=== PATIENT | female | born 1960 | race Caucasian/White ===

== ENCOUNTER 2018-05-11 02:46 | Observation (INO) ==
[2018-05-11] MEDS ORDERED: Sod Chloride 0.9% Inj 1,000 ML IV.SIG ONE (03:03)
[2018-05-11] MEDS ORDERED: Lidocaine 2%/Epinephrine 1:100,000 30 ML MDV INFILTRATN ONE (03:18)
[2018-05-11] MEDS ORDERED: Lidocaine 2%/Epinephrine 1;100,000 Inj 50 ML Vial ONE (03:25)
--- NOTE | 2018-05-11 03:29 | CT ---
EXAM DATE: 05/11/2018 3:24 AM EST AGE/SEX: 57 years / Female INDICATIONS: Trauma; head injury. Positive loss of consciousness. Laceration to left side of head. CLINICAL DATA: This is the patient's initial encounter. Patient reports that signs and symptoms have been present for 1 day and indicates a pain score of 6/10. MEDICAL/SURGICAL HISTORY: Hypertension. None. RADIATION DOSE: 56.35 CTDI (mGy) COMPARISON: No prior exams available for comparison. TECHNIQUE: CT of the head without contrast. Using automated exposure control and adjustment of the mA and/or kV according to patient size, radiation dose was kept as low as reasonably achievable to ob tain optimal diagnostic quality images. DICOM format image data is available electronically for revi ew and comparison. FINDINGS: Cerebrum: The ventricles are normal for age. No evidence of midline shift, mass lesion, hemorrhage or acute infarction. No extraaxial fluid collections are seen. Posterior Fossa: The cerebellum and brainstem are intact. The 4th ventricle is midline. The cerebe llopontine angle is unremarkable. Extracranial: The visualized portion of the orbits is intact. Skull: The calvaria is intact. No evidence of skull fracture. CONCLUSION: 1. Negative CT Head non contrast. . Electronically signed by: Yogesh Molina MD Board Certified Radiologist 05/11/2018 3:27 AM EST
[2018-05-11 03:35] LABS: Baso # (Auto) 0.1 th/mm3 (0.0-0.2); Baso % (Auto) 1.1 % (0.0-2.0); Eos # (Auto) 0.2 th/mm3 (0.0-0.4); Eos % (Auto) 2.2 % (0.0-4.0); Hematocrit 45.5 % (35.0-46.0); Hemoglobin 16.3 gm/dL (11.6-15.3); Lymph # (Auto) 3.6 th/mm3 (1.0-4.8); Lymph % (Auto) 39.1 % (9.0-44.0); Mean Corpuscular HGB Conc 35.8 % (32.0-36.0); Mean Corpuscular Hemoglobin 38.1 pg (27.0-34.0); Mean Corpuscular Volume 106.4 fL (80.0-100.0); Mean Platelet Volume 8.2 fL (7.0-11.0); Mono # (Auto) 0.9 th/mm3 (0.0-0.9); Mono % (Auto) 9.4 % (0.0-8.0); Neut # (Auto) 4.4 th/mm3 (1.8-7.7); Neut % (Auto) 48.2 % (16.0-70.0); Platelet Count 202 th/mm3 (150-450); Red Blood Count 4.27 mil/mm3 (4.00-5.30); Red Cell Distribution Width 13.3 % (11.6-17.2); White Blood Count 9.2 th/mm3 (4.0-11.0)
[2018-05-11 03:54] LABS: Anion Gap 12 meq/L (5-15); Blood Urea Nitrogen 1 mg/dL (7-18); Calcium 8.9 mg/dL (8.5-10.1); Carbon Dioxide 30.5 meq/L (21.0-32.0); Chloride 92 meq/L (98-107); Glomerular Filtration Rate Greater Than 89 mL/min (>89); Glucose,Random 137 mg/dL (74-106); Potassium 3.1 meq/L (3.5-5.1); Sodium 134 meq/L (136-145)
[2018-05-11 04:12] LABS: Bilirubin,Urine Negative (Negative); Clarity,Urine Clear (Clear); Color,Urine Straw (Yellw/Straw); Glucose,Urine (UA) Negative (Negative); Leukocyte Esterase,Urine Moderate (Negative); Nitrite,Urine Negative (Negative); Specific Gravity,Urine 1.001 (1.002-1.035)
--- NOTE | 2018-05-11 04:12 | ED ---
HPI General Chief Complaint: Fall Stated Complaint: Fall Time Seen by Provider: 05/11/18 02:53 Source: patient Mode of arrival: ambulatory Limitations: no limitations History of Present Illness HPI Narrative: 57 yo female arrives s/p fall at home with unresponsive state on the floor for approx 5 minutes. Pt was seen by family ambulatory and then found on the floor. + L head laceration with brisk bleed seen. Bleeding stopped with pressure dressing. + EtOH tonight, approx 2 cups liquor. In ED patient has no complaint, specifically no CP/SOB. No n/v. Onset sudden. Timing constant. No modifying factor. Related Data Home Medications Medication Instructions Recorded Confirmed atenolol 25 mg PO DAILY 05/11/18 05/11/18 gabapentin 300 mg PO BID 05/11/18 05/11/18 Allergies Allergy/AdvReac Type Severity Reaction Status Date / Time Penicillins Allergy HIVES Unverified 05/11/18 03:03 Review of Systems ROS Unobtainable ROS Unobtainable: unobtainable due to mental condition and unobtainable due to mental status PMFSH Medical History Medical History Hypertension (Acute) Neuropathy (Acute) PVC (premature ventricular contraction) (Acute) Social History Social History Substance History: No History of Abuse Second Hand Smoke Exposure: No Smoking Status: Current every day smoker Tobacco Type: Cigarettes How Often Do You Have a Drink Containing Alcohol: 4 or more times a week Recent Travel in [facility] within the Last 8 Weeks: No Recent Out of Country Travel within the Last 8 Weeks: No Immunization History Tetanus Immunization: >5 Years Exam Narrative Exam Narrative: GENERAL: 57 yo F, WNWD, mild distress SKIN: Focused skin assessment warm/dry. HEAD: Normocephalic. Approx 2cm laceration along left parietal scalp. No mastoid ecchymosis. EYES: Pupils equal and round. No scleral icterus. No injection or drainage. ENT: No nasal bleeding or discharge. Mucous membranes pink and moist. NECK: Trachea midline. No JVD. CARDIOVASCULAR: Regular rate and rhythm. No murmur appreciated. RESPIRATORY: No accessory muscle use. Clear to auscultation. Breath sounds equal bilaterally. GASTROINTESTINAL: Abdomen soft, non-tender, nondistended. Hepatic and splenic margins not palpable. MUSCULOSKELETAL: No obvious deformities. No clubbing. No cyanosis. No edema. NEUROLOGICAL: Awake and alert. No obvious cranial nerve deficits. Motor grossly within normal limits. Normal speech. PSYCHIATRIC: Appropriate mood and affect; insight and judgment normal. Course Initial Documented Vital Signs Temperature 98 F 05/11/18 02:53 Pulse Rate 66 05/11/18 02:53 Respiratory Rate 18 05/11/18 02:53 Blood Pressure 152/87 H 05/11/18 02:53 Pulse Oximetry 96 05/11/18 02:53 Last Documented Vital Signs Temperature 98 F 05/11/18 02:53 Pulse Rate 61 05/11/18 05:24 Respiratory Rate 18 05/11/18 05:24 Blood Pressure 126/71 05/11/18 02:57 Pulse Oximetry 99 05/11/18 05:24 Medical Decision Making MDM Narrative Medical decision making narrative: EKG shows ST depression in precordial leads, incomplete RBBB norted, sinus CBC essentially normal although MCV is 106 c/w alcoholism K 3.1 BUN 1 Random glucose 137 Tn < 0.[address] no acute pathology UA: No UTI EtOH 279 Pt reports L lower chest pain at time of reassessment. Pt also reports minimal PO intake for past several days with constipation and occasional soft stool. + Flatus. Likely LOC event 2/2 etoh intox. CP with abnormal ekg noted. d/w Dr Bocanegra for [facility] Medical Screen Exam Complete: Yes Emergency Medical Condition: Yes Lab Data Result diagrams: 05/11/18 03:17 05/11/18 03:17 Lab Results 05/11/18 05/11/18 05/11/18 Range/Units 03:17 03:17 03:17 WBC 9.2 (4.0-11.0) th/mm3 RBC 4.27 (4.00-5.30) mil/mm3 Hgb 16.3 H (11.6-15.3) gm/dL Hct 45.5 (35.0-46.0) % MCV 106.4 H (80.0-100.0) fL MCH 38.1 H (27.0-34.0) pg MCHC 35.8 (32.0-36.0) % RDW 13.3 (11.6-17.2) % Plt Count 202 (150-450) th/mm3 MPV 8.2 (7.0-11.0) fL Neut % (Auto) 48.2 (16.0-70.0) % Lymph % (Auto) 39.1 (9.0-44.0) % [place] % (Auto) 9.4 H (0.0-8.0) % Eos % (Auto) 2.2 (0.0-4.0) % Baso % (Auto) 1.1 (0.0-2.0) % Neut # (Auto) 4.4 (1.8-7.7) th/mm3 Lymph # (Auto) 3.6 (1.0-4.8) th/mm3 [place] # (Auto) 0.9 (0.0-0.9) th/mm3 Eos # (Auto) 0.2 (0.0-0.4) th/mm3 Baso # (Auto) 0.1 (0.0-0.2) th/mm3 WBC Differential . Differential Comment Auto diff final Sodium 134 L (136-145) meq/L Potassium 3.1 L (3.5-5.1) meq/L Chloride 92 L (98-107) meq/L Carbon Dioxide 30.5 (21.0-32.0) meq/L Anion Gap 12 (5-15) meq/L BUN 1 L (7-18) mg/dL Creatinine 0.50 (0.50-1.00) mg/dL Estimated GFR Greater than 89 (>89) mL/min Random Glucose 137 H (74-106) mg/dL Calcium 8.9 (8.5-10.1) mg/dL Troponin I Less than 0.02 L (0.02-0.05) ng/mL Urine Color (Yellw/Straw) Urine Clarity (Clear) Urine pH (5.0-8.5) Ur Specific [place] (1.002-1.035) Urine Protein (Neg-Trace) mg/dL Urine Glucose (UA) (Negative) mg/dL Urine Ketones (Negative) mg/dL Urine Occult Blood (Negative) Urine Nitrate (Negative) Urine Bilirubin (Negative) Urine Urobilinogen (Less than 2) mg/dL Ur Leukocyte Esterase (Negative) Urine RBC (0-3) /hpf Urine WBC (0-5) /hpf Ur Microscopic Review Serum Alcohol 279 H (0-5) mg/dL 05/11/18 Range/Units 03:25 WBC (4.0-11.0) th/mm3 RBC (4.00-5.30) mil/mm3 Hgb (11.6-15.3) gm/dL Hct (35.0-46.0) % MCV (80.0-100.0) fL MCH (27.0-34.0) pg MCHC (32.0-36.0) % RDW (11.6-17.2) % Plt Count (150-450) th/mm3 MPV (7.0-11.0) fL Neut % (Auto) (16.0-70.0) % Lymph % (Auto) (9.0-44.0) % [place] % (Auto) (0.0-8.0) % Eos % (Auto) (0.0-4.0) % Baso % (Auto) (0.0-2.0) % Neut # (Auto) (1.8-7.7) th/mm3 Lymph # (Auto) (1.0-4.8) th/mm3 [place] # (Auto) (0.0-0.9) th/mm3 Eos # (Auto) (0.0-0.4) th/mm3 Baso # (Auto) (0.0-0.2) th/mm3 WBC Differential Differential Comment Sodium (136-145) meq/L Potassium (3.5-5.1) meq/L Chloride (98-107) meq/L Carbon Dioxide (21.0-32.0) meq/L Anion Gap (5-15) meq/L BUN (7-18) mg/dL Creatinine (0.50-1.00) mg/dL Estimated GFR (>89) mL/min Random Glucose (74-106) mg/dL Calcium (8.5-10.1) mg/dL Troponin I (0.02-0.05) ng/mL Urine Color Straw (Yellw/Straw) Urine Clarity Clear (Clear) Urine pH 7.0 (5.0-8.5) Ur Specific [place] 1.001 L (1.002-1.035) Urine Protein Negative (Neg-Trace) mg/dL Urine Glucose (UA) Negative (Negative) mg/dL Urine Ketones Negative (Negative) mg/dL Urine Occult Blood Negative (Negative) Urine Nitrate Negative (Negative) Urine Bilirubin Negative (Negative) Urine Urobilinogen Less than 2 (Less than 2) mg/dL Ur Leukocyte Esterase Moderate H (Negative) Urine RBC Less than 1 (0-3) /hpf Urine WBC 2 (0-5) /hpf Ur Microscopic Review Not Reportable Serum Alcohol (0-5) mg/dL Imaging Data Radiologist's impression: Head CT 05/11/18 03:03 CONCLUSION: 1. Negative CT Head non contrast. . Chest X-Ray 05/11/18 04:45 CONCLUSION: The lungs are clear. Discharge Plan Discharge Disposition Patient Disposition: ED Admit(ED Internal Use Only) Discharge Order Discharge Orders: ED Use Only Admit Order (Routine); Ordered 05/11/18 Ordered By: Evaristo Velarde Physicians Team ED Provider: Evaristo Velarde Primary Care Provider: Primary Care Amanda Davidson Attending Provider: Susie Bocanegra Other Providers: [facility],Insurance Discharge Interventions Interventions: Vital Signs Last Done: 05/11/18 02:57 ED Discharge Assessment Last Done: 05/11/18 06:10 Status ED Status: Left Department Discharge Information Discharge Date/Time: 05/11/18 06:13
[2018-05-11] MEDS ORDERED: LORazepam 1 MG Tablet PO PRN (05:10)
[2018-05-11] MEDS ORDERED: Haloperidol Inj 5 MG/ML Ampul IV.PUSH PRN (05:10)
[2018-05-11] MEDS ORDERED: Bisacodyl 10 MG Supp RECTAL PRN (05:11)
[2018-05-11] MEDS ORDERED: Morphine Sulfate Inj 2 MG/ML Vial IV.PUSH PRN (05:13)
--- NOTE | 2018-05-11 06:10 | XR ---
EXAM DATE: 05/11/2018 5:07 AM EST AGE/SEX: 57 years / Female INDICATIONS: Chest pain. CLINICAL DATA: This is the patient's initial encounter. Patient reports that signs and symptoms have been present for 1 day and indicates a pain score of 5/10. MEDICAL/SURGICAL HISTORY: Hypertension. None. COMPARISON: No prior exams available for comparison. FINDINGS: A single AP view of the chest demonstrates the lungs to be symmetrically aerated without evidence of mass, infiltrate or effusion. The cardiomediastinal contours are unremarkable. Osseous structures a re intact. CONCLUSION: The lungs are clear. Electronically signed by: Yogesh Molina MD Board Certified Radiologist 05/11/2018 6:09 AM EST
[2018-05-11] MEDS: Sod Chloride 0.9% Inj 1,000 ML IV.CONT SCH ×2 (06:21→19:21)
[2018-05-11] MEDS: Pantoprazole Inj 40 MG Vial IV.PUSH SCH ×2 (06:22→18:04)
--- NOTE | 2018-05-11 07:50 | P.HP ---
History of Present Illness Primary Care Physician: No Primary Care Physician Chief Complaint: syncope History of Present Illness: 57-year-old female with history of hypertension, PVCs, neuropathy, alcohol use, tobacco use, presents after syncopal episode. Patient reports she has been in her normal state of health, drink her usual amount of alcohol around 2 cups of vodka, went to the bathroom, then while ambulating to the kitchen, suddenly lost consciousness and fell to the floor. Family heard a loud thud and found the patient unconscious with scalp laceration. There is reported that she was out for maybe 5 minutes. The patient recalls being transported via ambulance. She denies ever experiencing any lightheadedness, dizziness, chest pain, palpitations, shortness of breath prior to the episode. She denies any nausea or vomiting. She states over the past 10 days she has been battling constipation, therefore over the past 3 days she has been drinking only liquids. She has also been taking stool softeners and laxatives to have a bowel movement. She reports some pain under her left rib cage which has been present for a few days now. She also reports some tenderness to her sternum, reproducible with palpation. She denies any specific chest pains. She denies any history of she does report history of frequent PVCs for which she takes flecainide and atenolol, and sees mid level clinician Dr. Navarro. She believes she had a nuclear stress test and echocardiogram within the past 1 year that was unremarkable. She is declining any stress testing or echo at this time and wishes to follow-up with her mid level clinician after discharge. Review of Systems All other systems reviewed negative except as stated in [facility] - History History Provided By: Patient - Medical History Medical History: Medical History (Last Updated 05/11/18 @ 02:56 by Shasha Nur) Hypertension Neuropathy PVC (premature ventricular contraction) - Surgical History Surgical History: Surgical History (Last Updated 05/11/18 @ 10:12 by Kelly Benito) History of section - Family History Family History: Family History (Last Updated 05/11/18 @ 10:12 by Kelly Benito) Father Family history of blood clots Mother Lung cancer - Social History I have reviewed the patient's Social History: Yes - Tobacco History Second Hand Smoke Exposure: Yes Tobacco Use In Past 30 Days: Yes Smoking Status: Heavy tobacco smoker Tobacco Type: Cigarettes Packs Per Day: 1 - Alcohol History How Often Do You Have a Drink Containing Alcohol: 4 or more times a week - Substance Use History Substance History: No History of Abuse - Travel History Recent Travel in the [place] Within the Last 8 Weeks: No Recent Travel Out of the Country Within the Last 8 Weeks: No - Immunization History Tetanus Immunization: >5 Years Medications and Allergies Active Medications: Active Medications Acetaminophen (Tylenol) 650 mg PO Q4H PRN PRN Reason: Temp > 100.4 Al Hydroxide/Mg Hydroxide (Milk Of Magnesia Liq) 30 ml PO Q12H PRN PRN Reason: Mild Constipation Bisacodyl (Dulcolax Supp) 10 mg RECTAL DAILY PRN PRN Reason: SEVERE CONSITIPATION Flumazenil (Romazecon Inj) 0.2 mg IV.PUSH Q1M PRN PRN Reason: OVERSEDATION Folic Acid (Folic Acid) 1 mg PO DAILY [facility] Stop: 05/16/18 08:59 Haloperidol Lactate (Haldol Inj) 1 mg IV.PUSH Q15M PRN PRN Reason: for severe agitation Sodium Chloride (Ns Inj) 1,000 mls @ 100 mls/hr IV.CONT .Q10H [facility] Last Admin: 05/11/18 06:21 Dose: 100 mls/hr Lactulose (Lactulose Liq) 30 ml PO DAILY PRN PRN Reason: SEVERE CONSITIPATION Lorazepam (Ativan) 1 mg PO Q4H PRN PRN Reason: for CIWA 8-10 Lorazepam (Ativan) 2 mg PO Q2H PRN PRN Reason: for CIWA 11-14 Lorazepam (Ativan Inj) 2 mg IV.PUSH Q2H PRN PRN Reason: for CIWA 11-14 Lorazepam (Ativan Inj) 2 mg IV.PUSH Q1H PRN PRN Reason: for CIWA 15-20 Lorazepam (Ativan Inj) 1 mg IV.PUSH Q4H PRN PRN Reason: for CIWA 8-10 Lorazepam (Ativan Inj) 2 mg IV.PUSH Q15M PRN PRN Reason: for CIWA > 20 Morphine Sulfate (Morphine Inj) 2 mg IV.PUSH Q4H PRN PRN Reason: PAIN SCALE 6 TO 10 Multivitamins/Minerals (Theragran-M) 1 tab PO DAILY CYNTHIA Stop: 05/16/18 08:59 Ondansetron HCl (Zofran Inj) 4 mg IV.PUSH Q6H PRN PRN Reason: NAUSEA OR VOMITING Pantoprazole Sodium (Protonix Inj) 40 mg IV.PUSH Q12H [facility] Last Admin: 05/11/18 06:22 Dose: 40 mg Potassium Chloride (K-Dur) 40 meq PO ONCE ONE Stop: 05/11/18 07:50 Senna/Docusate Sodium ([place]-Colace) 1 tab PO BID [facility] Sennosides (Senokot) 17.2 mg PO Q12H PRN PRN Reason: Moderate Constipation Sodium Chloride (Ns Flush) 2 ml IV.FLUSH PRN PRN PRN Reason: FLUSH AFTER USING IV ACCESS Sodium Chloride (Ns Flush) 2 ml IV.FLUSH BID CYNTHIA Sodium Chloride (Ns Flush) 2 ml IV.FLUSH PRN PRN PRN Reason: FLUSH AFTER USING IV ACCESS Thiamine HCl (Vitamin B1) 100 mg PO DAILY [facility] Allergies Allergy/AdvReac Type Severity Reaction Status Date / Time Penicillins Allergy HIVES Verified 05/11/18 08:28 Home Medications Medication Instructions Recorded Confirmed Type atenolol 25 mg PO DAILY 05/11/18 05/11/18 History flecainide 50 mg PO Q12H 05/11/18 05/11/18 History gabapentin 300 mg PO BID 05/11/18 05/11/18 History Exam Vital signs: Vital Signs 05/11/18 02:53 05/11/18 02:57 05/11/18 03:51 Temperature 98 F Pulse Rate 66 68 Respiratory Rate 18 18 Blood Pressure 152/87 H 126/71 Pulse Oximetry 96 95 05/11/18 05:11 05/11/18 05:24 Temperature Pulse Rate 64 61 Respiratory Rate 18 Blood Pressure Pulse Oximetry 99 Intake & Output 05/10/18 05/11/18 05/11/18 18:59 06:59 18:59 Intake Total 1240 / 1240 Balance 1240 / 1240 Weight 81.647 kg Intake: IV 1000 / 1000 NS Inj 1,000 ML @ Wide Open IV. 1000 / 1000 SIG BOLUS ONE Rx#:[id number] Oral 240 / 240 Other: # Voids 1 Weight On Admission 81.647 kg Narrative: GENERAL: Well-nourished, well-developed pleasant middle-age female patient in NAD. SKIN: Warm and dry. No rash. HEENT: Normocephalic. Left parietal scalp with 2 cm laceration. Pupils equal and round. Mucous membranes pink and moist. NECK: Supple. Trachea midline. Nontender. CARDIOVASCULAR: Regular rate and rhythm. No murmur appreciated. RESPIRATORY: No accessory muscle use. Clear to auscultation. Breath sounds equal bilaterally. GASTROINTESTINAL: Abdomen soft, nondistended, mild epigastric and left upper quadrant tenderness to deep palpation. Normoactive bowel sounds x4. MUSCULOSKELETAL: No obvious deformities. Extremities without clubbing, cyanosis , or edema. NEUROLOGICAL: Awake and alert. No obvious cranial nerve deficits. Motor grossly within normal limits. Moving all extremities spontaneously. Normal speech. PSYCHIATRIC: Appropriate mood and affect; insight and judgment normal. Results - Labs CBC & Chem 7: 05/11/18 03:17 05/11/18 03:17 Labs: Laboratory Results - last 24 hr 05/11/18 05/11/18 05/11/18 03:17 03:17 03:17 WBC 9.2 RBC 4.27 Hgb 16.3 H Hct 45.5 MCV 106.4 H MCH 38.1 H MCHC 35.8 RDW 13.3 Plt Count 202 MPV 8.2 Neut % (Auto) 48.2 Lymph % (Auto) 39.1 [place] % (Auto) 9.4 H Eos % (Auto) 2.2 Baso % (Auto) 1.1 Neut # (Auto) 4.4 Lymph # (Auto) 3.6 [place] # (Auto) 0.9 Eos # (Auto) 0.2 Baso # (Auto) 0.1 WBC Differential . Differential Comment Auto diff final Sodium 134 L Potassium 3.1 L Chloride 92 L Carbon Dioxide 30.5 Anion Gap 12 BUN 1 L Creatinine 0.50 Estimated GFR Greater than 89 Random Glucose 137 H Calcium 8.9 Troponin I Less than 0.02 L Urine Color Urine Clarity Urine pH Ur Specific [place] Urine Protein Urine Glucose (UA) Urine Ketones Urine Occult Blood Urine Nitrate Urine Bilirubin Urine Urobilinogen Ur Leukocyte Esterase Urine RBC Urine WBC Ur Microscopic Review Serum Alcohol 279 H 05/11/18 03:25 WBC RBC Hgb Hct MCV MCH MCHC RDW Plt Count MPV Neut % (Auto) Lymph % (Auto) [place] % (Auto) Eos % (Auto) Baso % (Auto) Neut # (Auto) Lymph # (Auto) [place] # (Auto) Eos # (Auto) Baso # (Auto) WBC Differential Differential Comment Sodium Potassium Chloride Carbon Dioxide Anion Gap BUN Creatinine Estimated GFR Random Glucose Calcium Troponin I Urine Color Straw Urine Clarity Clear Urine pH 7.0 Ur Specific [place] 1.001 L Urine Protein Negative Urine Glucose (UA) Negative Urine Ketones Negative Urine Occult Blood Negative Urine Nitrate Negative Urine Bilirubin Negative Urine Urobilinogen Less than 2 Ur Leukocyte Esterase Moderate H Urine RBC Less than 1 Urine WBC 2 Ur Microscopic Review Not Reportable Serum Alcohol - Imaging Impressions Head CT 05/11/18 03:03 CONCLUSION: 1. Negative CT Head non contrast. . Chest X-Ray 05/11/18 04:45 CONCLUSION: The lungs are clear. Caprini VTE Risk Assessment Caprini VTE Risk Assessment: No/Low Risk (score <= 1) Caprini Risk Assessment Model: Point Value = 1 Point Value = 2 Point Value = 3 Point Value = 5 Age 41-60 Minor surgery BMI > 25 kg/m2 Swollen legs Varicose veins or History of unexplained or recurrent spontaneous Oral contraceptives or hormone replacement Sepsis (< 1 month) Serious lung disease, including pneumonia (< 1 month) Abnormal pulmonary function Acute myocardial infarction Congestive heart failure (< 1 month) History of inflammatory bowel disease Medical patient at bed rest Age 61-74 Arthroscopic surgery Major open surgery (> 45 min) Laparoscopic surgery (> 45 min) Malignancy Confined to bed (> 72 hours) Immobilizing plaster cast Central venous access Age >= 75 History of VTE Family history of VTE Factor V Leiden Prothrombin [id number] Lupus anticoagulant Anticardiolipin antibodies Elevated serum homocysteine Heparin-induced thrombocytopenia Other congenital or acquired thrombophilia Stroke (< 1 month) Elective arthroplasty Hip, pelvis, or leg fracture Acute spinal cord injury (< 1 month) Prophylaxis Regimen: Total Risk Factor Score Risk Level Prophylaxis Regimen 0-1 Low Early ambulation 2 Moderate Order ONE of the following: *Sequential Compression Device (SCD) *Heparin 5000 units SQ BID 3-4 Higher Order ONE of the following medications: *Heparin 5000 units SQ TID *Enoxaparin/Lovenox 40 mg SQ daily (WT < 150 kg, CrCl > 30 mL/min) *Enoxaparin/Lovenox 30 mg SQ daily (WT < 150 kg, CrCl > 10-29 mL/min) *Enoxaparin/Lovenox 30 mg SQ BID (WT < 150 kg, CrCl > 30 mL/min) AND/OR *Sequential Compression Device (SCD) 5 or more Highest Order ONE of the following medications: *Heparin 5000 units SQ TID (Preferred with Epidurals) *Enoxaparin/Lovenox 40 mg SQ daily (WT < 150 kg, CrCl > 30 mL/min) *Enoxaparin/Lovenox 30 mg SQ daily (WT < 150 kg, CrCl > 10-29 mL/min) *Enoxaparin/Lovenox 30 mg SQ BID (WT < 150 kg, CrCl > 30 mL/min) AND *Sequential Compression Device (SCD) Assessment and Plan - Plan 57-year-old female with history of hypertension, PVCs, neuropathy, alcohol use, tobacco use, presents after syncopal episode. Syncope: Strongly suspect secondary to alcohol intoxication and dehydration. However hx of arrhythmias with frequent PVCs. -EtOH level 279 -Head CT reviewed and unremarkable -Check orthostatics, mildly positive -Rule out ACS with serial cardiac enzymes, first set negative -EKG reviewed, shows sinus rhythm with 1st degree AV block, incomplete RBBB, with some slight ST changes -Give IV fluid hydration -Monitor on telemetry -Neurochecks -Patient is back to baseline, asymptomatic -will consult patient's mid level clinician Dr. Navarro if available, and strongly encouraged follow-up for outpatient echo and event monitor History of frequent PVCs: Chronic, possibly contributing to above -Monitor on telemetry, no significant findings -continue patient's atenolol, awaiting verification of flecainide dosing -consulted cardiology as above Abdominal Pain/Constipation: acute -check abdominal CT -give stool softeners/laxatives prn -monitor for BM Dehydration/Hypokalemia: suspect secondary to decreased oral intake and alcohol abuse -give IVF hydration -replaced potassium -monitor BMP/electrolytes and replace as needed Alcohol Abuse: chronic -counselled on cessation -thiamine/folate/MV -monitor for withdrawal DVT Prophylaxis: teds/SCDs
[2018-05-11] MEDS: Folic Acid 1 MG Tablet PO SCH (08:28)
[2018-05-11] MEDS: Multivitamin/Minerals Therapeutic Tablet PO SCH (08:28)
[2018-05-11] MEDS: Senna/Docusate Sodium 8.6/50 MG Tablet PO SCH ×2 (08:28→20:01)
[2018-05-11] MEDS ORDERED: Diatrizoate Meglum/Diatrizoate Sod Liq 9 ML UDC PO ONE (08:34)
[2018-05-11] MEDS ORDERED: Atenolol 50 MG Tablet PO SCH (09:00)
[2018-05-11] MEDS: Gabapentin 300 MG Capsule PO SCH ×2 (09:26→20:27)
[2018-05-11] MEDS: Atenolol 25 MG Tablet PO SCH (09:26)
[2018-05-11 12:44] LABS: Alanine Aminotransferase 55 U/L (10-53); Alkaline Phosphatase 130 U/L (45-117); Anion Gap 14 meq/L (5-15); Aspartate Aminotransferase 152 U/L (15-37); Calcium 8.8 mg/dL (8.5-10.1); Chloride 100 meq/L (98-107); Glomerular Filtration Rate Greater Than 89 mL/min (>89); Glucose,Random 120 mg/dL (74-106); Lipase 119 U/L (73-393); Magnesium 1.2 mg/dL (1.5-2.5); Potassium 4.1 meq/L (3.5-5.1); Sodium 140 meq/L (136-145); Total Protein 6.7 g/dL (6.4-8.2)
--- NOTE | 2018-05-11 13:22 | CT ---
EXAM DATE: 05/11/2018 1:16 PM EST AGE/SEX: 57 years / Female INDICATIONS: Left side abdominal pain. CLINICAL DATA: This is the patient's initial encounter. Patient reports that signs and symptoms have been present for 1 day and indicates a pain score of 4/10. MEDICAL/SURGICAL HISTORY: Hypertension. None. ORAL CONTRAST: No oral contrast ingested. RADIATION DOSE: 13.21 CTDI (mGy) COMPARISON: [facility], CT ABDOMEN AND PELVIS W AND W/O CONTRAST, 12/22/2014. . TECHNIQUE: Multiple contiguous axial images were obtained through the abdomen and pelvis following b olus infusion of 94 ml Omnipaque 350 (iohexol) nonionic water-soluble contrast as a single exam dos e. No oral contrast ingested. Using automated exposure control and adjustment of the mA and/or kV ac cording to patient size, radiation dose was kept as low as reasonably achievable to obtain optimal di agnostic quality images. DICOM format image data is available electronically for review and comparis on. FINDINGS: Lower Lungs: The visualized lower lungs are clear. Liver: There is diffuse decreased attenuation to the liver. No focal hepatic lesions are seen. Spleen: Homogeneous density without enlargement. Pancreas: Unremarkable without mass or calcification. Kidneys: Normal in size and shape. No evidence of mass or hydronephrosis. Adrenal Glands: Unremarkable. Aorta: The aorta and proximal iliac vessels are grossly unremarkable without aneurysmal dilation. T here are scattered atherosclerotic calcifications present. Bowel/Mesentery: There is thickening of the sigmoid colon. Scattered colonic diverticula are present . There are some induration seen around the sigmoid colon. There is a small focus of extraluminal air seen in the mesentery adjacent to the sigmoid colon. Free air is not seen. The ascending, transverse and descending portions of the colon are unremarkable. The small bowel is unremarkable. Abdominal Wall: Intact. Retroperitoneum: No evidence of adenopathy in the retrocrural, para-aortic, or deep pelvic regions. Bladder: Contours are smooth. Reproductive Organs: No abnormal masses or calcifications seen. Inguinal: The inguinal region is unremarkable without evidence of adenopathy. Bony Structures: There is degenerative change seen in the lumbar spine. CONCLUSION: 1. Thickening of the sigmoid colon with adjacent inflammatory change and a small focus of air likely related to colitis. This may start is diverticulitis. 2. Hepatic steatosis. Electronically signed by: Cornelius Myles MD Board Certified Radiologist 05/11/2018 1:21 PM EST
[2018-05-11] MEDS: Acetaminophen 325 MG Tablet PO PRN ×2 (13:29→18:04)
[2018-05-11] MEDS: Ciprofloxacin 400 MG/200 ML 400 MG/200 ML PIGGYBACK IV.SIG SCH (16:27)
--- NOTE | 2018-05-11 16:52 | P.CONGI ---
History of Present Illness Chief complaint: syncope, head laceraction, alcohol intox, chest History of Present Illness: This is 57-year-old female with history of hypertension, PVCs, neuropathy, alcohol abuse, tobacco use who presented with syncopal episode. Patient endorses sudden lost of consciousness and fall after consuming vodka. She denies ever experiencing any lightheadedness, dizziness, chest pain, palpitations, shortness of breath prior to the episode. She denies any nausea or vomiting. She states over the past week, she has been dealing with constipation. She has also been taking stool softeners and laxatives to have a bowel movement. Describes stools as sludge and loose stools mixed in with some solids. Denies nausea, vomiting, melena or hematochezia. She reports some pain under her left rib cage and lower abd pain started same time as constipation. Abdomen/Pelvis CT 05/11/18 Thickening of the sigmoid colon with adjacent inflammatory change and a small focus of air likely related to colitis. This may start is diverticulitis.Hepatic steatosis. Endorses previous hx of diverticulitis, but no recent flare. She never had EGD/colonoscopy before. She denies previous hx of liver dz. Drinks about 2 cups of vodka daily. <Kojo Lopez - Last Filed: 05/11/18 17:47> Review of Systems All other systems reviewed negative except as stated in HPI <Kojo Lopez - Last Filed: 05/11/18 17:47> PMFSH - History History Provided By: Patient - Medical History Medical History: Medical History (Last Updated 05/11/18 @ 02:56 by Shasha Nur) Hypertension Neuropathy PVC (premature ventricular contraction) - Surgical History Surgical History: Surgical History (Last Updated 05/11/18 @ 10:12 by Kelly Benito) History of section - Family History Family History: Family History (Last Updated 05/11/18 @ 10:12 by Kelly Benito) Father Family history of blood clots Mother Lung cancer - Tobacco History Second Hand Smoke Exposure: Yes Tobacco Use In Past 30 Days: Yes Smoking Status: Heavy tobacco smoker Tobacco Type: Cigarettes Packs Per Day: 1 - Alcohol History How Often Do You Have a Drink Containing Alcohol: 4 or more times a week - Substance Use History Substance History: No History of Abuse - Travel History Recent Travel in the [facility] Within the Last 8 Weeks: No Recent Travel Out of the Country Within the Last 8 Weeks: No - Immunization History Tetanus Immunization: >5 Years <Kojo Lopez - Last Filed: 05/11/18 17:47> - Medical History Medical History: Medical History (Last Updated 05/11/18 @ 02:56 by Shasha Nur) Hypertension Neuropathy PVC (premature ventricular contraction) - Surgical History Surgical History: Surgical History (Last Updated 05/11/18 @ 10:12 by Kelly Benito) History of section - Family History Family History: Family History (Last Updated 05/11/18 @ 10:12 by Kelly Benito) Father Family history of blood clots Mother Lung cancer <Malik Beck - Last Filed: 05/11/18 18:47> Medications and Allergies Active Medications: Active Medications Acetaminophen (Tylenol) 650 mg PO Q4H PRN PRN Reason: Temp > 100.4 Last Admin: 05/11/18 13:29 Dose: 650 mg Al Hydroxide/Mg Hydroxide (Milk Of Clau Gant) 30 ml PO Q12H PRN PRN Reason: Mild Constipation Atenolol (Tenormin) 25 mg PO DAILY [facility] Last Admin: 05/11/18 09:26 Dose: 25 mg Bisacodyl (Dulcolax Supp) 10 mg RECTAL DAILY PRN PRN Reason: SEVERE CONSITIPATION Flumazenil (Romazecon Inj) 0.2 mg IV.PUSH Q1M PRN PRN Reason: OVERSEDATION Folic Acid (Folic Acid) 1 mg PO DAILY [facility] Stop: 05/16/18 08:59 Last Admin: 05/11/18 08:28 Dose: 1 mg Gabapentin (Neurontin) 300 mg PO BID [facility] Last Admin: 05/11/18 09:26 Dose: 300 mg Haloperidol Lactate (Haldol Inj) 1 mg IV.PUSH Q15M PRN PRN Reason: for severe agitation Sodium Chloride (Ns Inj) 1,000 mls @ 100 mls/hr IV.CONT .Q10H [facility] Last Infusion: 05/11/18 16:36 Dose: 100 mls/hr Metronidazole/Sodium Chloride (Flagyl 500 Mg Inj) 100 mls @ 100 mls/hr IV.SIG Q8H [facility] Ciprofloxacin/Dextrose (Cipro 400 Mg/200 Ml Inj) 400 mg in 200 mls @ 200 mls/ hr IV.SIG Q12H [facility] Last Admin: 05/11/18 16:27 Dose: 200 mls/hr Lactulose (Lactulose Liq) 30 ml PO DAILY PRN PRN Reason: SEVERE CONSITIPATION Lorazepam (Ativan) 1 mg PO Q4H PRN PRN Reason: for CIWA 8-10 Lorazepam (Ativan) 2 mg PO Q2H PRN PRN Reason: for CIWA 11-14 Lorazepam (Ativan Inj) 2 mg IV.PUSH Q2H PRN PRN Reason: for CIWA 11-14 Lorazepam (Ativan Inj) 2 mg IV.PUSH Q1H PRN PRN Reason: for CIWA 15-20 Lorazepam (Ativan Inj) 1 mg IV.PUSH Q4H PRN PRN Reason: for CIWA 8-10 Lorazepam (Ativan Inj) 2 mg IV.PUSH Q15M PRN PRN Reason: for CIWA > 20 Morphine Sulfate (Morphine Inj) 2 mg IV.PUSH Q4H PRN PRN Reason: PAIN SCALE 6 TO 10 Multivitamins/Minerals (Theragran-M) 1 tab PO DAILY [facility] Stop: 05/16/18 08:59 Last Admin: 05/11/18 08:28 Dose: 1 tab Ondansetron HCl (Zofran Inj) 4 mg IV.PUSH Q6H PRN PRN Reason: NAUSEA OR VOMITING Pantoprazole Sodium (Protonix Inj) 40 mg IV.PUSH Q12H [facility] Last Admin: 05/11/18 06:22 Dose: 40 mg Senna/Docusate Sodium (Lib[place]-Colace) 1 tab PO BID [facility] Last Admin: 05/11/18 08:28 Dose: 1 tab Sennosides (Senokot) 17.2 mg PO Q12H PRN PRN Reason: Moderate Constipation Sodium Chloride (Ns Flush) 2 ml IV.FLUSH BID [facility] Last Admin: 05/11/18 08:29 Dose: Not Given Sodium Chloride (Ns Flush) 2 ml IV.FLUSH PRN PRN PRN Reason: FLUSH AFTER USING IV ACCESS Thiamine HCl (Vitamin B1) 100 mg PO DAILY [facility] Last Admin: 05/11/18 08:28 Dose: 100 mg <Kojo Lopez - Last Filed: 05/11/18 17:47> Active Medications: Active Medications Acetaminophen (Tylenol) 650 mg PO Q4H PRN PRN Reason: Temp > 100.4 Last Admin: 05/11/18 18:04 Dose: 650 mg Al Hydroxide/Mg Hydroxide (Milk Of Magnesia Liq) 30 ml PO Q12H PRN PRN Reason: Mild Constipation Atenolol (Tenormin) 25 mg PO DAILY [facility] Last Admin: 05/11/18 09:26 Dose: 25 mg Bisacodyl (Dulcolax Supp) 10 mg RECTAL DAILY PRN PRN Reason: SEVERE CONSITIPATION Flumazenil (Romazecon Inj) 0.2 mg IV.PUSH Q1M PRN PRN Reason: OVERSEDATION Folic Acid (Folic Acid) 1 mg PO DAILY [facility] Stop: 05/16/18 08:59 Last Admin: 05/11/18 08:28 Dose: 1 mg Gabapentin (Neurontin) 300 mg PO BID [facility] Last Admin: 05/11/18 09:26 Dose: 300 mg Haloperidol Lactate (Haldol Inj) 1 mg IV.PUSH Q15M PRN PRN Reason: for severe agitation Sodium Chloride (Ns Inj) 1,000 mls @ 100 mls/hr IV.CONT .Q10H [facility] Last Infusion: 05/11/18 17:54 Dose: 100 mls/hr Metronidazole/Sodium Chloride (Flagyl 500 Mg Inj) 100 mls @ 100 mls/hr IV.SIG Q8H [facility] Last Admin: 05/11/18 18:45 Dose: 100 mls/hr Ciprofloxacin/Dextrose (Cipro 400 Mg/200 Ml Inj) 400 mg in 200 mls @ 200 mls/ hr IV.SIG Q12H [facility] Last Infusion: 05/11/18 18:20 Dose: Infused Lactulose (Lactulose Liq) 30 ml PO DAILY PRN PRN Reason: SEVERE CONSITIPATION Lorazepam (Ativan) 1 mg PO Q4H PRN PRN Reason: for CIWA 8-10 Lorazepam (Ativan) 2 mg PO Q2H PRN PRN Reason: for CIWA 11-14 Lorazepam (Ativan Inj) 2 mg IV.PUSH Q2H PRN PRN Reason: for CIWA 11-14 Lorazepam (Ativan Inj) 2 mg IV.PUSH Q1H PRN PRN Reason: for CIWA 15-20 Lorazepam (Ativan Inj) 1 mg IV.PUSH Q4H PRN PRN Reason: for CIWA 8-10 Lorazepam (Ativan Inj) 2 mg IV.PUSH Q15M PRN PRN Reason: for CIWA > 20 Morphine Sulfate (Morphine Inj) 2 mg IV.PUSH Q4H PRN PRN Reason: PAIN SCALE 6 TO 10 Multivitamins/Minerals (Theragran-M) 1 tab PO DAILY [facility] Stop: 05/16/18 08:59 Last Admin: 05/11/18 08:28 Dose: 1 tab Ondansetron HCl (Zofran Inj) 4 mg IV.PUSH Q6H PRN PRN Reason: NAUSEA OR VOMITING Pantoprazole Sodium (Protonix Inj) 40 mg IV.PUSH Q12H [facility] Last Admin: 05/11/18 18:04 Dose: 40 mg Senna/Docusate Sodium (Libia-Colace) 1 tab PO BID [facility] Last Admin: 05/11/18 08:28 Dose: 1 tab Sennosides (Senokot) 17.2 mg PO Q12H PRN PRN Reason: Moderate Constipation Sodium Chloride (Ns Flush) 2 ml IV.FLUSH BID [facility] Last Admin: 05/11/18 08:29 Dose: Not Given Sodium Chloride (Ns Flush) 2 ml IV.FLUSH PRN PRN PRN Reason: FLUSH AFTER USING IV ACCESS Thiamine HCl (Vitamin B1) 100 mg PO DAILY [facility] Last Admin: 05/11/18 08:28 Dose: 100 mg <Malik Beck - Last Filed: 05/11/18 18:47> Allergies Allergy/AdvReac Type Severity Reaction Status Date / Time Penicillins Allergy HIVES Verified 05/11/18 08:28 Home Medications Medication Instructions Recorded Confirmed Type atenolol 25 mg PO DAILY 05/11/18 05/11/18 History flecainide 50 mg PO Q12H 05/11/18 05/11/18 History gabapentin 300 mg PO BID 05/11/18 05/11/18 History Exam Vital signs: Vital Signs 05/11/18 02:53 05/11/18 02:57 05/11/18 03:51 Temperature 98 F Pulse Rate 66 68 Respiratory Rate 18 18 Blood Pressure 152/87 H 126/71 Pulse Oximetry 96 95 05/11/18 05:11 05/11/18 05:24 05/11/18 08:00 Temperature Pulse Rate 64 61 87 Respiratory Rate 18 18 Blood Pressure 104/60 Pulse Oximetry 99 96 Intake & Output 05/10/18 05/11/18 05/11/18 18:59 06:59 18:59 Intake Total 1240 / 1240 400 / 400 Balance 1240 / 1240 400 / 400 Weight 81.647 kg Intake: IV 1000 / 1000 400 / 400 NS Inj 1,000 ML @ 100 mls/hr IV 400 / 400 .CONT .Q10H [facility] Rx#:[id number] NS Inj 1,000 ML @ Wide Open IV. 1000 / 1000 SIG BOLUS ONE Rx#:[id number] Oral 240 / 240 Other: # Voids 1 1 Weight On Admission 81.647 kg - Constitutional no acute distress - Routine HEENT Exam Head: Present: normocephalic - Routine Respiratory Exam Present: CTA bilaterally - Routine Cardiovascular Exam Present: RRR - Routine Abdominal Exam Present: soft, normoactive bowel sounds. Absent: tenderness, distended - Routine Extremities Exam Absent: cyanosis, edema - Routine Skin Exam Present: intact, dry. Absent: jaundice - Routine Neurological Exam Present: alert, oriented X3 <Kojo Lopez - Last Filed: 05/11/18 17:47> Vital signs: Vital Signs 05/11/18 02:53 05/11/18 02:57 05/11/18 03:51 Temperature 98 F Pulse Rate 66 68 Respiratory Rate 18 18 Blood Pressure 152/87 H 126/71 Pulse Oximetry 96 95 05/11/18 05:11 05/11/18 05:24 05/11/18 08:00 Temperature Pulse Rate 64 61 87 Respiratory Rate 18 18 Blood Pressure 104/60 Pulse Oximetry 99 96 Intake & Output 05/10/18 05/11/18 05/11/18 18:59 06:59 18:59 Intake Total 1240 / 1240 600 / 600 Balance 1240 / 1240 600 / 600 Weight 81.647 kg Intake: IV 1000 / 1000 600 / 600 NS Inj 1,000 ML @ 100 mls/hr IV 400 / 400 .CONT .Q10H [facility] Rx#:[id number] Cipro 400 MG/200 ML Inj 400 mg 200 / 200 In 200 ml @ 200 mls/hr IV.SIG Q12H [facility] Rx#:[id number] NS Inj 1,000 ML @ Wide Open IV. 1000 / 1000 SIG BOLUS ONE Rx#:[id number] Oral 240 / 240 Other: # Voids 1 1 Weight On Admission 81.647 kg <Malik Beck - Last Filed: 05/11/18 18:47> Results - Labs CBC & Chem 7: 05/11/18 03:17 05/11/18 10:00 Labs: Laboratory Results - last 24 hr 05/11/18 05/11/18 05/11/18 03:17 03:17 03:17 WBC 9.2 RBC 4.27 Hgb 16.3 H Hct 45.5 MCV 106.4 H MCH 38.1 H MCHC 35.8 RDW 13.3 Plt Count 202 MPV 8.2 Neut % (Auto) 48.2 Lymph % (Auto) 39.1 Titus % (Auto) 9.4 H Eos % (Auto) 2.2 Baso % (Auto) 1.1 Neut # (Auto) 4.4 Lymph # (Auto) 3.6 Titus # (Auto) 0.9 Eos # (Auto) 0.2 Baso # (Auto) 0.1 WBC Differential . Differential Comment Auto diff final Sodium 134 L Potassium 3.1 L Chloride 92 L Carbon Dioxide 30.5 Anion Gap 12 BUN 1 L Creatinine 0.50 Estimated GFR Greater than 89 POC Glucose Random Glucose 137 H Calcium 8.9 Magnesium Total Bilirubin AST ALT Alkaline Phosphatase Troponin I Less than 0.02 L Total Protein Albumin Lipase Urine Color Urine Clarity Urine pH Ur Specific [place] Urine Protein Urine Glucose (UA) Urine Ketones Urine Occult Blood Urine Nitrate Urine Bilirubin Urine Urobilinogen Ur Leukocyte Esterase Urine RBC Urine WBC Ur Microscopic Review Serum Alcohol 279 H 05/11/18 05/11/18 05/11/18 03:25 08:27 10:00 WBC RBC Hgb Hct MCV MCH MCHC RDW Plt Count MPV Neut % (Auto) Lymph % (Auto) Titus % (Auto) Eos % (Auto) Baso % (Auto) Neut # (Auto) Lymph # (Auto) Titus # (Auto) Eos # (Auto) Baso # (Auto) WBC Differential Differential Comment Sodium Potassium Chloride Carbon Dioxide Anion Gap BUN Creatinine Estimated GFR POC Glucose 162 H Random Glucose Calcium Magnesium Total Bilirubin AST ALT Alkaline Phosphatase Troponin I Less than 0.02 L Total Protein Albumin Lipase Urine Color Straw Urine Clarity Clear Urine pH 7.0 Ur Specific [place] 1.001 L Urine Protein Negative Urine Glucose (UA) Negative Urine Ketones Negative Urine Occult Blood Negative Urine Nitrate Negative Urine Bilirubin Negative Urine Urobilinogen Less than 2 Ur Leukocyte Esterase Moderate H Urine RBC Less than 1 Urine WBC 2 Ur Microscopic Review Not Reportable Serum Alcohol 05/11/18 05/11/18 10:00 10:00 WBC RBC Hgb Hct MCV MCH MCHC RDW Plt Count MPV Neut % (Auto) Lymph % (Auto) Titus % (Auto) Eos % (Auto) Baso % (Auto) Neut # (Auto) Lymph # (Auto) Titus # (Auto) Eos # (Auto) Baso # (Auto) WBC Differential Differential Comment Sodium 140 Potassium 4.1 D Chloride 100 D Carbon Dioxide 26.0 Anion Gap 14 BUN Less than 1 L Creatinine 0.58 Estimated GFR Greater than 89 POC Glucose Random Glucose 120 H Calcium 8.8 Magnesium Cancelled 1.2 L Total Bilirubin 1.1 H AST 152 H ALT 55 H Alkaline Phosphatase 130 H Troponin I Less than 0.02 L Total Protein 6.7 Albumin 3.0 L Lipase 119 Urine Color Urine Clarity Urine pH Ur Specific [place] Urine Protein Urine Glucose (UA) Urine Ketones Urine Occult Blood Urine Nitrate Urine Bilirubin Urine Urobilinogen Ur Leukocyte Esterase Urine RBC Urine WBC Ur Microscopic Review Serum Alcohol - Imaging Impressions Abdomen/Pelvis CT 05/11/18 00:00 CONCLUSION: 1. Thickening of the sigmoid colon with adjacent inflammatory change and a small focus of air likely related to colitis. This may start is diverticulitis. 2. Hepatic steatosis. Head CT 05/11/18 03:03 CONCLUSION: 1. Negative CT Head non contrast. . Chest X-Ray 05/11/18 04:45 CONCLUSION: The lungs are clear. <Kojo Lopez - Last Filed: 05/11/18 17:47> - Labs CBC & Chem 7: 05/11/18 03:17 05/11/18 10:00 Labs: Laboratory Results - last 24 hr 05/11/18 05/11/18 05/11/18 03:17 03:17 03:17 WBC 9.2 RBC 4.27 Hgb 16.3 H Hct 45.5 MCV 106.4 H MCH 38.1 H MCHC 35.8 RDW 13.3 Plt Count 202 MPV 8.2 Neut % (Auto) 48.2 Lymph % (Auto) 39.1 Titus % (Auto) 9.4 H Eos % (Auto) 2.2 Baso % (Auto) 1.1 Neut # (Auto) 4.4 Lymph # (Auto) 3.6 Titus # (Auto) 0.9 Eos # (Auto) 0.2 Baso # (Auto) 0.1 WBC Differential . Differential Comment Auto diff final Sodium 134 L Potassium 3.1 L Chloride 92 L Carbon Dioxide 30.5 Anion Gap 12 BUN 1 L Creatinine 0.50 Estimated GFR Greater than 89 POC Glucose Random Glucose 137 H Calcium 8.9 Magnesium Total Bilirubin AST ALT Alkaline Phosphatase Troponin I Less than 0.02 L Total Protein Albumin Lipase Urine Color Urine Clarity Urine pH Ur Specific [place] Urine Protein Urine Glucose (UA) Urine Ketones Urine Occult Blood Urine Nitrate Urine Bilirubin Urine Urobilinogen Ur Leukocyte Esterase Urine RBC Urine WBC Ur Microscopic Review Serum Alcohol 279 H 05/11/18 05/11/18 05/11/18 03:25 08:27 10:00 WBC RBC Hgb Hct MCV MCH MCHC RDW Plt Count MPV Neut % (Auto) Lymph % (Auto) Titus % (Auto) Eos % (Auto) Baso % (Auto) Neut # (Auto) Lymph # (Auto) Titus # (Auto) Eos # (Auto) Baso # (Auto) WBC Differential Differential Comment Sodium Potassium Chloride Carbon Dioxide Anion Gap BUN Creatinine Estimated GFR POC Glucose 162 H Random Glucose Calcium Magnesium Total Bilirubin AST ALT Alkaline Phosphatase Troponin I Less than 0.02 L Total Protein Albumin Lipase Urine Color Straw Urine Clarity Clear Urine pH 7.0 Ur Specific [place] 1.001 L Urine Protein Negative Urine Glucose (UA) Negative Urine Ketones Negative Urine Occult Blood Negative Urine Nitrate Negative Urine Bilirubin Negative Urine Urobilinogen Less than 2 Ur Leukocyte Esterase Moderate H Urine RBC Less than 1 Urine WBC 2 Ur Microscopic Review Not Reportable Serum Alcohol 05/11/18 05/11/18 10:00 10:00 WBC RBC Hgb Hct MCV MCH MCHC RDW Plt Count MPV Neut % (Auto) Lymph % (Auto) Titus % (Auto) Eos % (Auto) Baso % (Auto) Neut # (Auto) Lymph # (Auto) Titus # (Auto) Eos # (Auto) Baso # (Auto) WBC Differential Differential Comment Sodium 140 Potassium 4.1 D Chloride 100 D Carbon Dioxide 26.0 Anion Gap 14 BUN Less than 1 L Creatinine 0.58 Estimated GFR Greater than 89 POC Glucose Random Glucose 120 H Calcium 8.8 Magnesium Cancelled 1.2 L Total Bilirubin 1.1 H AST 152 H ALT 55 H Alkaline Phosphatase 130 H Troponin I Less than 0.02 L Total Protein 6.7 Albumin 3.0 L Lipase 119 Urine Color Urine Clarity Urine pH Ur Specific [place] Urine Protein Urine Glucose (UA) Urine Ketones Urine Occult Blood Urine Nitrate Urine Bilirubin Urine Urobilinogen Ur Leukocyte Esterase Urine RBC Urine WBC Ur Microscopic Review Serum Alcohol - Imaging Impressions Abdomen/Pelvis CT 05/11/18 00:00 CONCLUSION: 1. Thickening of the sigmoid colon with adjacent inflammatory change and a small focus of air likely related to colitis. This may start is diverticulitis. 2. Hepatic steatosis. Head CT 05/11/18 03:03 CONCLUSION: 1. Negative CT Head non contrast. . Chest X-Ray 05/11/18 04:45 CONCLUSION: The lungs are clear. <Malik Beck - Last Filed: 05/11/18 18:47> Assessment and Plan - Plan - Diverticulitis vs colitis-Abdomen/Pelvis CT 05/11/18 Thickening of the sigmoid colon with adjacent inflammatory change and a small focus of air likely related to colitis. This may start is diverticulitis.Hepatic steatosis. Endorses previous hx of diverticulitis, but no recent flare. She never had EGD/colonoscopy before. - constipation- She has also been taking stool softeners and laxatives to have a bowel movement. Describes stools as sludge and loose stools mixed in with some solids. - Elevated LFTs- likely secondary to alcohol abuse, She denies previous hx of liver dz. Drinks about 2 cups of [address] daily[address] Ct showed steatosis - Syncopal episode- likely to dehydration and alcohol intoxication Etoh 279. Cardiology consulted - history of hypertension, PVCs, neuropathy Plan: - clears - Add Flagyl and Cipro - Colonoscopy in 6 weeks - hepatitis panel - Bowel regimen - Consult GS for evaluation of possible perforation - Stool studies - DTs precautions - Alcohol cessation - IV hydration - Supportive care - pt seen and examined by Dr. Beck and myself and this note is written on his behalf <Kojo Lopez - Last Filed: 05/11/18 17:47> - Attending Attestation Patient seen and examined. History and physical reviewed with the nurse practitioner. Patient with acute diverticulitis with limited perforation. General surgery consultation due to localized perforation seen on CT scan. IV antibiotics as prescribed. Follow-up in our office after discharge patient will require colonoscopy after acute diverticulitis has been treated <Malik Beck - Last Filed: 05/11/18 18:47>
--- NOTE | 2018-05-11 20:39 | P.CONCA ---
History of Present Illness Service: Cardiology Consult date: 05/11/18 Reason for Consult: Syncope Primary Care Provider: No Primary Care Physician Chief Complaint: syncope History of Present Illness: Ms. Ferrer is a 57 year old female known to Dr. Navarro. She has a history of hypertension, PVCs - on beta karri, flecainide, neuropathy, alcohol use, tobacco use. She presented to the ED after syncopal episode. She reports she has been in her normal state of health, drank her usual amount of alcohol - around 2 cups of vodka, went to the bathroom, then while ambulating to the kitchen, suddenly lost consciousness and fell to the floor. Family heard a loud thud and found the patient unconscious with scalp laceration. EMS was called and she was brought to the ED for further evaluation. She denies dizziness, lightheadedness, chest pain, palpitations, shortness of breath prior to the episode. Denies any nausea or vomiting. EKG shows SR with first degree AVB, T wave inversion anterior leads. Serial troponin negative. Hypokalemia K+ 3.1 on admission, now 4.1. Na 134, ETOH 279, AST 152. Potassium has been repleted. CT head was negative. CXR showed no acute process. Review of Systems 12 point ROS is negative except what is mentioned in the HPI PMFSH - History History Provided By: Patient - Medical History Medical History: Medical History (Last Updated 05/11/18 @ 02:56 by Shasha Nur) Hypertension Neuropathy PVC (premature ventricular contraction) - Surgical History Surgical History: Surgical History (Last Updated 05/11/18 @ 10:12 by Kelly Benito) History of section - Family History Family History: Family History (Last Updated 05/11/18 @ 10:12 by Kelly Benito) Father Family history of blood clots Mother Lung cancer - Tobacco History Second Hand Smoke Exposure: Yes Tobacco Use In Past 30 Days: Yes Smoking Status: Heavy tobacco smoker Tobacco Type: Cigarettes Packs Per Day: 1 - Alcohol History How Often Do You Have a Drink Containing Alcohol: 4 or more times a week - Substance Use History Substance History: No History of Abuse - Travel History Recent Travel in the [place] Within the Last 8 Weeks: No Recent Travel Out of the Country Within the Last 8 Weeks: No - Immunization History Tetanus Immunization: >5 Years Medications and Allergies Allergies Allergy/AdvReac Type Severity Reaction Status Date / Time Penicillins Allergy HIVES Verified 05/11/18 08:28 Home Medications Medication Instructions Recorded Confirmed Type atenolol 25 mg PO DAILY 05/11/18 05/11/18 History flecainide 50 mg PO Q12H 05/11/18 05/11/18 History gabapentin 300 mg PO BID 05/11/18 05/11/18 History Active Medications: Active Medications Acetaminophen (Tylenol) 650 mg PO Q4H PRN PRN Reason: Temp > 100.4 Last Admin: 05/11/18 18:04 Dose: 650 mg Al Hydroxide/Mg Hydroxide (Milk Of Magnesia Liq) 30 ml PO Q12H PRN PRN Reason: Mild Constipation Atenolol (Tenormin) 25 mg PO DAILY [facility] Last Admin: 05/11/18 09:26 Dose: 25 mg Bisacodyl (Dulcolax Supp) 10 mg RECTAL DAILY PRN PRN Reason: SEVERE CONSITIPATION Flumazenil (Romazecon Inj) 0.2 mg IV.PUSH Q1M PRN PRN Reason: OVERSEDATION Folic Acid (Folic Acid) 1 mg PO DAILY [facility] Stop: 05/16/18 08:59 Last Admin: 05/11/18 08:28 Dose: 1 mg Gabapentin (Neurontin) 300 mg PO BID [facility] Last Admin: 05/11/18 20:27 Dose: 300 mg Haloperidol Lactate (Haldol Inj) 1 mg IV.PUSH Q15M PRN PRN Reason: for severe agitation Sodium Chloride (Ns Inj) 1,000 mls @ 100 mls/hr IV.CONT .Q10H [facility] Last Admin: 05/11/18 19:21 Dose: Not Given Metronidazole/Sodium Chloride (Flagyl 500 Mg Inj) 100 mls @ 100 mls/hr IV.SIG Q8H [facility] Last Infusion: 05/11/18 19:51 Dose: Infused Ciprofloxacin/Dextrose (Cipro 400 Mg/200 Ml Inj) 400 mg in 200 mls @ 200 mls/ hr IV.SIG Q12H [facility] Last Infusion: 05/11/18 18:20 Dose: Infused Lactulose (Lactulose Liq) 30 ml PO DAILY PRN PRN Reason: SEVERE CONSITIPATION Lorazepam (Ativan) 1 mg PO Q4H PRN PRN Reason: for CIWA 8-10 Lorazepam (Ativan) 2 mg PO Q2H PRN PRN Reason: for CIWA 11-14 Lorazepam (Ativan Inj) 2 mg IV.PUSH Q2H PRN PRN Reason: for CIWA 11-14 Lorazepam (Ativan Inj) 2 mg IV.PUSH Q1H PRN PRN Reason: for CIWA 15-20 Lorazepam (Ativan Inj) 1 mg IV.PUSH Q4H PRN PRN Reason: for CIWA 8-10 Lorazepam (Ativan Inj) 2 mg IV.PUSH Q15M PRN PRN Reason: for CIWA > 20 Morphine Sulfate (Morphine Inj) 2 mg IV.PUSH Q4H PRN PRN Reason: PAIN SCALE 6 TO 10 Multivitamins/Minerals (Theragran-M) 1 tab PO DAILY [facility] Stop: 05/16/18 08:59 Last Admin: 05/11/18 08:28 Dose: 1 tab Ondansetron HCl (Zofran Inj) 4 mg IV.PUSH Q6H PRN PRN Reason: NAUSEA OR VOMITING Last Admin: 05/11/18 18:51 Dose: 4 mg Pantoprazole Sodium (Protonix Inj) 40 mg IV.PUSH Q12H [facility] Last Admin: 05/11/18 18:04 Dose: 40 mg Senna/Docusate Sodium ([place]-Colace) 1 tab PO BID [facility] Last Admin: 05/11/18 20:01 Dose: Not Given Sennosides (Senokot) 17.2 mg PO Q12H PRN PRN Reason: Moderate Constipation Sodium Chloride (Ns Flush) 2 ml IV.FLUSH BID [facility] Last Admin: 05/11/18 20:01 Dose: Not Given Sodium Chloride (Ns Flush) 2 ml IV.FLUSH PRN PRN PRN Reason: FLUSH AFTER USING IV ACCESS Thiamine HCl (Vitamin B1) 100 mg PO DAILY [facility] Last Admin: 05/11/18 08:28 Dose: 100 mg Exam Vital signs: Vital Signs 05/11/18 02:53 05/11/18 02:57 05/11/18 03:51 Temperature 98 F Pulse Rate 66 68 Respiratory Rate 18 18 Blood Pressure 152/87 H 126/71 Pulse Oximetry 96 95 05/11/18 05:11 05/11/18 05:24 05/11/18 08:00 Temperature Pulse Rate 64 61 87 Respiratory Rate 18 18 Blood Pressure 104/60 Pulse Oximetry 99 96 05/11/18 20:00 Temperature 97.4 F L Pulse Rate 67 Respiratory Rate 20 Blood Pressure 131/83 Pulse Oximetry 96 Intake & Output 05/11/18 05/11/18 05/12/18 06:59 18:59 06:59 Intake Total 1240 / 1240 600 / 600 100 / 100 Balance 1240 / 1240 600 / 600 100 / 100 Weight 81.647 kg Intake: IV 1000 / 1000 600 / 600 100 / 100 NS Inj 1,000 ML @ 100 mls/hr IV 400 / 400 .CONT .Q10H [facility] Rx#:[id number] Cipro 400 MG/200 ML Inj 400 mg 200 / 200 In 200 ml @ 200 mls/hr IV.SIG Q12H [facility] Rx#:[id number] NS Inj 1,000 ML @ Wide Open IV. 1000 / 1000 SIG BOLUS ONE Rx#:[id number] Flagyl 500 MG Inj 100 ML @ 100 100 / 100 mls/hr IV.SIG Q8H [facility] Rx#: [id number] Oral 240 / 240 Other: # Voids 1 1 5 Date of Last Bowel Movement 05/11/18 Weight On Admission 81.647 kg Narrative: GENERAL: Well-nourished, well-developed pleasant middle-age female patient in [facility]. SKIN: Warm and dry. No rash. HEENT: Normocephalic. Left parietal scalp with 2 cm laceration. Pupils equal and round. Mucous membranes pink and moist. NECK: Supple. Trachea midline. Nontender. CARDIOVASCULAR: Regular rate and rhythm. No murmur appreciated. RESPIRATORY: No accessory muscle use. Clear to auscultation. Breath sounds equal bilaterally. GASTROINTESTINAL: Abdomen soft, nondistended, mild epigastric and left upper quadrant tenderness to deep palpation. Normoactive bowel sounds x4. MUSCULOSKELETAL: No obvious deformities. Extremities without clubbing, cyanosis , or edema. NEUROLOGICAL: Awake and alert. No obvious cranial nerve deficits. Motor grossly within normal limits. Moving all extremities spontaneously. Normal speech. PSYCHIATRIC: Appropriate mood and affect; insight and judgment normal. Results 05/11/18 03:17 05/11/18 10:00 Cardiac Enzymes 05/11/18 05/11/18 05/11/18 Range/Units 03:17 10:00 10:00 AST (15-37) U/L Troponin I Less than 0.02 L Less than 0.02 L Less than 0.02 L (0.02-0.05) ng/mL 05/11/18 05/11/18 Range/Units 10:00 17:45 AST 152 H (15-37) U/L Troponin I Less than 0.02 L (0.02-0.05) ng/mL CBC 05/11/18 Range/Units 03:17 WBC 9.2 (4.0-11.0) th/mm3 RBC 4.27 (4.00-5.30) mil/mm3 Hgb 16.3 H (11.6-15.3) gm/dL Hct 45.5 (35.0-46.0) % Plt Count 202 (150-450) th/mm3 Neut # (Auto) 4.4 (1.8-7.7) th/mm3 Lymph # (Auto) 3.6 (1.0-4.8) th/mm3 [place] # (Auto) 0.9 (0.0-0.9) th/mm3 Eos # (Auto) 0.2 (0.0-0.4) th/mm3 Baso # (Auto) 0.1 (0.0-0.2) th/mm3 Comprehensive Metabolic Panel 05/11/18 05/11/18 Range/Units 03:17 10:00 Sodium 134 L 140 (136-145) meq/L Potassium 3.1 L 4.1 D (3.5-5.1) meq/L Chloride 92 L 100 D (98-107) meq/L Carbon Dioxide 30.5 26.0 (21.0-32.0) meq/L BUN 1 L Less than 1 L (7-18) mg/dL Creatinine 0.50 0.58 (0.50-1.00) mg/dL Calcium 8.9 8.8 (8.5-10.1) mg/dL AST 152 H (15-37) U/L ALT 55 H (10-53) U/L Alkaline Phosphatase 130 H (45-117) U/L Total Protein 6.7 (6.4-8.2) g/dL Albumin 3.0 L (3.4-5.0) g/dL Intake and Output 05/11/18 05/11/18 05/11/18 06:59 14:59 22:59 Intake Total 1240 / 1240 700 / 700 Balance 1240 / 1240 700 / 700 Intake: IV 1000 / 1000 700 / 700 NS Inj 1,000 ML @ 100 mls/hr IV 400 / 400 .CONT .Q10H [facility] Rx#:[id number] Cipro 400 MG/200 ML Inj 400 mg 200 / 200 In 200 ml @ 200 mls/hr IV.SIG Q12H [facility] Rx#:[id number] NS Inj 1,000 ML @ Wide Open IV. 1000 / 1000 SIG BOLUS ONE Rx#:[id number] Flagyl 500 MG Inj 100 ML @ 100 100 / 100 mls/hr IV.SIG Q8H [facility] Rx#: [id number] Oral 240 / 240 Other: # Voids 1 1 5 Date of Last Bowel Movement 05/11/18 Weight 81.647 kg Weight On Admission 81.647 kg - Imaging and Cardiology Imaging: Impressions Abdomen/Pelvis CT 05/11/18 00:00 CONCLUSION: 1. Thickening of the sigmoid colon with adjacent inflammatory change and a small focus of air likely related to colitis. This may start is diverticulitis. 2. Hepatic steatosis. Head CT 05/11/18 03:03 CONCLUSION: 1. Negative CT Head non contrast. . Chest X-Ray 05/11/18 04:45 CONCLUSION: The lungs are clear. Assessment and Plan - Assessment (1) Syncope Code(s): R55 - Syncope and collapse Status: Acute (2) PVCs (premature ventricular contractions) Code(s): I49.3 - Ventricular premature depolarization Status: Acute (3) Alcohol abuse Code(s): F10.10 - Alcohol abuse, uncomplicated Status: Acute (4) Hypokalemia Code(s): E87.6 - Hypokalemia Status: Acute - Plan Likely neurocardiogenic syncope. Hydration was reviewed. Alcohol cessation. Will monitor telemetry for arrhythmias. Potassium repleted. Continue beta karri, flecainide. Follow up with Dr. Navarro for outpatient telemetry. This patient was seen and examined by Win Hassan MD and this note is written on his behalf. Discussed Condition With: Dr. Hassan - Attending Attestation Pt. seen and examined. Appears to be neurocardiogenic syncope. Concern for ventricular arrhythmias on flecainide. Will check Echo, monitor on telemetry. Further recommendation to follow hospital course. May need to dc flecainide.
--- NOTE | 2018-05-11 21:36 | P.PNVS ---
Subjective Subjective/Hospital Course: Referral received Full consult TF J Objective Vital Signs / I&O: Vital Signs 05/11/18 02:53 05/11/18 02:57 05/11/18 03:51 Temperature 98 F Pulse Rate 66 68 Respiratory Rate 18 18 Blood Pressure 152/87 H 126/71 Pulse Oximetry 96 95 05/11/18 05:11 05/11/18 05:24 05/11/18 08:00 Temperature Pulse Rate 64 61 87 Respiratory Rate 18 18 Blood Pressure 104/60 Pulse Oximetry 99 96 05/11/18 20:00 Temperature 97.4 F L Pulse Rate 67 Respiratory Rate 20 Blood Pressure 131/83 Pulse Oximetry 96 Intake & Output 05/11/18 05/11/18 05/12/18 06:59 18:59 06:59 Intake Total 1240 / 1240 600 / 600 100 / 100 Balance 1240 / 1240 600 / 600 100 / 100 Weight 81.647 kg Intake: IV 1000 / 1000 600 / 600 100 / 100 NS Inj 1,000 ML @ 100 mls/hr IV 400 / 400 .CONT .Q10H [facility] Rx#:[id number] Cipro 400 MG/200 ML Inj 400 mg 200 / 200 In 200 ml @ 200 mls/hr IV.SIG Q12H [facility] Rx#:[id number] NS Inj 1,000 ML @ Wide Open IV. 1000 / 1000 SIG BOLUS ONE Rx#:[id number] Flagyl 500 MG Inj 100 ML @ 100 100 / 100 mls/hr IV.SIG Q8H [facility] Rx#: [id number] Oral 240 / 240 Other: # Voids 1 1 5 Date of Last Bowel Movement 05/11/18 Weight On Admission 81.647 kg Laboratory Results - last 24 hr 05/11/18 05/11/18 05/11/18 03:17 03:17 03:17 WBC 9.2 RBC 4.27 Hgb 16.3 H Hct 45.5 MCV 106.4 H MCH 38.1 H MCHC 35.8 RDW 13.3 Plt Count 202 MPV 8.2 Neut % (Auto) 48.2 Lymph % (Auto) 39.1 [place] % (Auto) 9.4 H Eos % (Auto) 2.2 Baso % (Auto) 1.1 Neut # (Auto) 4.4 Lymph # (Auto) 3.6 [place] # (Auto) 0.9 Eos # (Auto) 0.2 Baso # (Auto) 0.1 WBC Differential . Differential Comment Auto diff final Sodium 134 L Potassium 3.1 L Chloride 92 L Carbon Dioxide 30.5 Anion Gap 12 BUN 1 L Creatinine 0.50 Estimated GFR Greater than 89 POC Glucose Random Glucose 137 H Calcium 8.9 Magnesium Total Bilirubin AST ALT Alkaline Phosphatase Troponin I Less than 0.02 L Total Protein Albumin Lipase Urine Color Urine Clarity Urine pH Ur Specific [place] Urine Protein Urine Glucose (UA) Urine Ketones Urine Occult Blood Urine Nitrate Urine Bilirubin Urine Urobilinogen Ur Leukocyte Esterase Urine RBC Urine WBC Ur Microscopic Review Stl C.difficile DNA Amp St C. diff Tox Epid 027 Serum Alcohol 279 H 05/11/18 05/11/18 05/11/18 03:25 08:27 10:00 WBC RBC Hgb Hct MCV MCH MCHC RDW Plt Count MPV Neut % (Auto) Lymph % (Auto) [place] % (Auto) Eos % (Auto) Baso % (Auto) Neut # (Auto) Lymph # (Auto) [place] # (Auto) Eos # (Auto) Baso # (Auto) WBC Differential Differential Comment Sodium Potassium Chloride Carbon Dioxide Anion Gap BUN Creatinine Estimated GFR POC Glucose 162 H Random Glucose Calcium Magnesium Total Bilirubin AST ALT Alkaline Phosphatase Troponin I Less than 0.02 L Total Protein Albumin Lipase Urine Color Straw Urine Clarity Clear Urine pH 7.0 Ur Specific [place] 1.001 L Urine Protein Negative Urine Glucose (UA) Negative Urine Ketones Negative Urine Occult Blood Negative Urine Nitrate Negative Urine Bilirubin Negative Urine Urobilinogen Less than 2 Ur Leukocyte Esterase Moderate H Urine RBC Less than 1 Urine WBC 2 Ur Microscopic Review Not Reportable Stl C.difficile DNA Amp St C. diff Tox Epid 027 Serum Alcohol 05/11/18 05/11/18 05/11/18 10:00 10:00 17:45 WBC RBC Hgb Hct MCV MCH MCHC RDW Plt Count MPV Neut % (Auto) Lymph % (Auto) [place] % (Auto) Eos % (Auto) Baso % (Auto) Neut # (Auto) Lymph # (Auto) [place] # (Auto) Eos # (Auto) Baso # (Auto) WBC Differential Differential Comment Sodium 140 Potassium 4.1 D Chloride 100 D Carbon Dioxide 26.0 Anion Gap 14 BUN Less than 1 L Creatinine 0.58 Estimated GFR Greater than 89 POC Glucose Random Glucose 120 H Calcium 8.8 Magnesium Cancelled 1.2 L Total Bilirubin 1.1 H AST 152 H ALT 55 H Alkaline Phosphatase 130 H Troponin I Less than 0.02 L Less than 0.02 L Total Protein 6.7 Albumin 3.0 L Lipase 119 Urine Color Urine Clarity Urine pH Ur Specific [place] Urine Protein Urine Glucose (UA) Urine Ketones Urine Occult Blood Urine Nitrate Urine Bilirubin Urine Urobilinogen Ur Leukocyte Esterase Urine RBC Urine WBC Ur Microscopic Review Stl C.difficile DNA Amp St C. diff Tox Epid 027 Serum Alcohol 05/11/18 05/11/18 18:20 18:50 WBC RBC Hgb Hct MCV MCH MCHC RDW Plt Count MPV Neut % (Auto) Lymph % (Auto) [place] % (Auto) Eos % (Auto) Baso % (Auto) Neut # (Auto) Lymph # (Auto) [place] # (Auto) Eos # (Auto) Baso # (Auto) WBC Differential Differential Comment Sodium Potassium Chloride Carbon Dioxide Anion Gap BUN Creatinine Estimated GFR POC Glucose 148 H Random Glucose Calcium Magnesium Total Bilirubin AST ALT Alkaline Phosphatase Troponin I Total Protein Albumin Lipase Urine Color Urine Clarity Urine pH Ur Specific [place] Urine Protein Urine Glucose (UA) Urine Ketones Urine Occult Blood Urine Nitrate Urine Bilirubin Urine Urobilinogen Ur Leukocyte Esterase Urine RBC Urine WBC Ur Microscopic Review Stl C.difficile DNA Amp Positive H St C. diff Tox Epid 027 Negative Serum Alcohol Impressions Abdomen/Pelvis CT 05/11/18 00:00 CONCLUSION: 1. Thickening of the sigmoid colon with adjacent inflammatory change and a small focus of air likely related to colitis. This may start is diverticulitis. 2. Hepatic steatosis. Head CT 05/11/18 03:03 CONCLUSION: 1. Negative CT Head non contrast. . Chest X-Ray 05/11/18 04:45 CONCLUSION: The lungs are clear.
[2018-05-12] MEDS: Sod Chloride 0.9% Inj 1,000 ML IV.CONT SCH ×2 (00:45→14:10)
[2018-05-12] MEDS: Acetaminophen 325 MG Tablet PO PRN (00:46)
[2018-05-12] MEDS: Ciprofloxacin 400 MG/200 ML 400 MG/200 ML PIGGYBACK IV.SIG SCH (03:39)
[2018-05-12] MEDS: Pantoprazole Inj 40 MG Vial IV.PUSH SCH ×2 (05:40→17:33)
[2018-05-12 06:12] LABS: Baso % (Auto) 0.4 % (0.0-2.0); Eos # (Auto) 0.2 th/mm3 (0.0-0.4); Hematocrit 38.2 % (35.0-46.0); Hemoglobin 13.6 gm/dL (11.6-15.3); Lymph # (Auto) 2.1 th/mm3 (1.0-4.8); Lymph % (Auto) 24.3 % (9.0-44.0); Mean Corpuscular HGB Conc 35.5 % (32.0-36.0); Mean Corpuscular Hemoglobin 38.3 pg (27.0-34.0); Mean Corpuscular Volume 107.7 fL (80.0-100.0); Mean Platelet Volume 8.6 fL (7.0-11.0); Mono # (Auto) 0.9 th/mm3 (0.0-0.9); Mono % (Auto) 10.2 % (0.0-8.0); Neut # (Auto) 5.4 th/mm3 (1.8-7.7); Neut % (Auto) 63.1 % (16.0-70.0); Platelet Count 140 th/mm3 (150-450); Red Blood Count 3.54 mil/mm3 (4.00-5.30); Red Cell Distribution Width 13.2 % (11.6-17.2); White Blood Count 8.5 th/mm3 (4.0-11.0)
[2018-05-12 06:32] LABS: Alanine Aminotransferase 38 U/L (10-53); Albumin 2.5 g/dL (3.4-5.0); Alkaline Phosphatase 105 U/L (45-117); Anion Gap 9 meq/L (5-15); Aspartate Aminotransferase 90 U/L (15-37); Blood Urea Nitrogen 3 mg/dL (7-18); Calcium 7.4 mg/dL (8.5-10.1); Carbon Dioxide 28.7 meq/L (21.0-32.0); Chloride 103 meq/L (98-107); Glomerular Filtration Rate Greater Than 89 mL/min (>89); Glucose,Random 95 mg/dL (74-106); Potassium 3.8 meq/L (3.5-5.1); Sodium 141 meq/L (136-145); Total Protein 5.3 g/dL (6.4-8.2)
[2018-05-12 07:27] LABS: Hepatitis A IgM Antibody Nonreactive (Nonreactive); Hepatitits B Surface Antigen Nonreactive (Nonreactive)
--- NOTE | 2018-05-12 08:42 | P.PNGI ---
Subjective Interval history: Pt is on her way for echo. No more abd pain, but reports multiple loose stools. No bleeding, no N/V <ZahraaLuigi shahkrysiraj - Last Filed: 05/12/18 10:35> Physical Exam Vital signs: Vital Signs 05/11/18 20:00 05/11/18 23:42 05/12/18 04:00 Temperature 97.4 F L 98.3 F 96.9 F L Pulse Rate 67 67 65 Respiratory Rate 20 18 16 Blood Pressure 131/83 118/61 121/66 Pulse Oximetry 96 95 94 L 05/12/18 07:42 Temperature 98.1 F Pulse Rate 62 Respiratory Rate 16 Blood Pressure 141/77 H Pulse Oximetry 94 L Intake & Output 05/11/18 05/12/18 05/12/18 18:59 06:59 18:59 Intake Total 600 / 600 3220 / 3220 Balance 600 / 600 3220 / 3220 Weight 81.6 kg Intake: IV 600 / 600 1400 / 1400 NS Inj 1,000 ML @ 100 mls/hr IV 400 / 400 1000 / 1000 .CONT .Q10H [facility] Rx#:[id number] Cipro 400 MG/200 ML Inj 400 mg 200 / 200 200 / 200 In 200 ml @ 200 mls/hr IV.SIG Q12H [facility] Rx#:[id number] Flagyl 500 MG Inj 100 ML @ 100 200 / 200 mls/hr IV.SIG Q8H [facility] Rx#: [id number] Oral 320 / 320 Other 1500 / 1500 Other: Other Intake Source Saline Solution # Voids 1 4 Date of Last Bowel Movement 05/12/18 # Bowel Movements 2 <Malik Beck - Last Filed: 05/12/18 10:11> Vital signs: Vital Signs 05/11/18 20:00 05/11/18 23:42 05/12/18 04:00 Temperature 97.4 F L 98.3 F 96.9 F L Pulse Rate 67 67 65 Respiratory Rate 20 18 16 Blood Pressure 131/83 118/61 121/66 Pulse Oximetry 96 95 94 L 05/12/18 07:42 Temperature 98.1 F Pulse Rate 62 Respiratory Rate 16 Blood Pressure 141/77 H Pulse Oximetry 94 L Intake & Output 05/11/18 05/12/18 05/12/18 18:59 06:59 18:59 Intake Total 600 / 600 3220 / 3220 Balance 600 / 600 3220 / 3220 Weight 81.6 kg Intake: IV 600 / 600 1400 / 1400 NS Inj 1,000 ML @ 100 mls/hr IV 400 / 400 1000 / 1000 .CONT .Q10H [facility] Rx#:[id number] Cipro 400 MG/200 ML Inj 400 mg 200 / 200 200 / 200 In 200 ml @ 200 mls/hr IV.SIG Q12H [facility] Rx#:[id number] Flagyl 500 MG Inj 100 ML @ 100 200 / 200 mls/hr IV.SIG Q8H [facility] Rx#: [id number] Oral 320 / 320 Other 1500 / 1500 Other: Other Intake Source Saline Solution # Voids 1 4 Date of Last Bowel Movement 05/12/18 # Bowel Movements 2 Narrative: GENERAL: Well-nourished, well-developed, patient in [place]. SKIN: Warm and dry. No rash. CARDIOVASCULAR: Regular rate and rhythm. No murmur appreciated. RESPIRATORY: No accessory muscle use. Clear to auscultation. Breath sounds equal bilaterally. GASTROINTESTINAL: Abdomen soft, nondistended, left upper quadrant tenderness to deep palpation. Normoactive bowel sounds x4. MUSCULOSKELETAL: No obvious deformities. Extremities without clubbing, cyanosis , or edema. NEUROLOGICAL: Awake and alert. PSYCHIATRIC: Appropriate mood and affect; insight and judgment normal. <Kojo Lopez - Last Filed: 05/12/18 10:35> Results - Labs CBC & Chem 7: 05/12/18 05:29 05/12/18 05:29 Laboratory Results - last 24 hr 05/11/18 05/11/18 05/11/18 10:00 10:00 10:00 WBC RBC Hgb Hct MCV MCH MCHC RDW Plt Count MPV Neut % (Auto) Lymph % (Auto) [place] % (Auto) Eos % (Auto) Baso % (Auto) Neut # (Auto) Lymph # (Auto) [place] # (Auto) Eos # (Auto) Baso # (Auto) WBC Differential Differential Comment Sodium 140 Potassium 4.1 D Chloride 100 D Carbon Dioxide 26.0 Anion Gap 14 BUN Less than 1 L Creatinine 0.58 Estimated GFR Greater than 89 POC Glucose Random Glucose 120 H Calcium 8.8 Calcium Adj for Albumin Magnesium Cancelled 1.2 L Total Bilirubin 1.1 H AST 152 H ALT 55 H Alkaline Phosphatase 130 H Troponin I Less than 0.02 L Less than 0.02 L Total Protein 6.7 Albumin 3.0 L Lipase 119 Stool C.difficile Ag Stool C.difficile Toxin Stl C.difficile DNA Amp St C. diff Tox Epid 027 Hepatitis A IgM Ab Hep Bs Antigen Hep B Core IgM Ab Hep C IgG Ab 05/11/18 05/11/18 05/11/18 17:45 18:20 18:50 WBC RBC Hgb Hct MCV MCH MCHC RDW Plt Count MPV Neut % (Auto) Lymph % (Auto) [place] % (Auto) Eos % (Auto) Baso % (Auto) Neut # (Auto) Lymph # (Auto) [place] # (Auto) Eos # (Auto) Baso # (Auto) WBC Differential Differential Comment Sodium Potassium Chloride Carbon Dioxide Anion Gap BUN Creatinine Estimated GFR POC Glucose 148 H Random Glucose Calcium Calcium Adj for Albumin Magnesium Total Bilirubin AST ALT Alkaline Phosphatase Troponin I Less than 0.02 L Total Protein Albumin Lipase Stool C.difficile Ag Positive H Stool C.difficile Toxin Negative Stl C.difficile DNA Amp Positive H St C. diff Tox Epid 027 Negative Hepatitis A IgM Ab Hep Bs Antigen Hep B Core IgM Ab Hep C IgG Ab 05/12/18 05/12/18 05/12/18 05:29 05:29 05:29 WBC 8.5 RBC 3.54 L Hgb 13.6 D Hct 38.2 MCV 107.7 H MCH 38.3 H MCHC 35.5 RDW 13.2 Plt Count 140 L D MPV 8.6 Neut % (Auto) 63.1 Lymph % (Auto) 24.3 [place] % (Auto) 10.2 H Eos % (Auto) 2.0 Baso % (Auto) 0.4 Neut # (Auto) 5.4 Lymph # (Auto) 2.1 [place] # (Auto) 0.9 Eos # (Auto) 0.2 Baso # (Auto) 0.0 WBC Differential . Differential Comment Auto diff final Sodium 141 Potassium 3.8 Chloride 103 Carbon Dioxide 28.7 Anion Gap 9 BUN 3 L Creatinine 0.61 Estimated GFR Greater than 89 POC Glucose Random Glucose 95 Calcium 7.4 L* D Calcium Adj for Albumin 8.6 Magnesium Total Bilirubin 1.6 H AST 90 H ALT 38 Alkaline Phosphatase 105 Troponin I Total Protein 5.3 L D Albumin 2.5 L Lipase Stool C.difficile Ag Stool C.difficile Toxin Stl C.difficile DNA Amp St C. diff Tox Epid 027 Hepatitis A IgM Ab Nonreactive Hep Bs Antigen Nonreactive Hep B Core IgM Ab Nonreactive Hep C IgG Ab Nonreactive 05/12/18 09:35 WBC RBC Hgb Hct MCV MCH MCHC RDW Plt Count MPV Neut % (Auto) Lymph % (Auto) [place] % (Auto) Eos % (Auto) Baso % (Auto) Neut # (Auto) Lymph # (Auto) [place] # (Auto) Eos # (Auto) Baso # (Auto) WBC Differential Differential Comment Sodium Potassium Chloride Carbon Dioxide Anion Gap BUN Creatinine Estimated GFR POC Glucose 116 H Random Glucose Calcium Calcium Adj for Albumin Magnesium Total Bilirubin AST ALT Alkaline Phosphatase Troponin I Total Protein Albumin Lipase Stool C.difficile Ag Stool C.difficile Toxin Stl C.difficile DNA Amp St C. diff Tox Epid 027 Hepatitis A IgM Ab Hep Bs Antigen Hep B Core IgM Ab Hep C IgG Ab Microbiology 05/11/18 18:20 Stool Enteric Pathogens (PCR) - Final - Imaging Impressions Abdomen/Pelvis CT 05/11/18 00:00 CONCLUSION: 1. Thickening of the sigmoid colon with adjacent inflammatory change and a small focus of air likely related to colitis. This may start is diverticulitis. 2. Hepatic steatosis. <Malik Beck - Last Filed: 05/12/18 10:11> - Labs CBC & Chem 7: 05/12/18 05:29 05/12/18 05:29 Laboratory Results - last 24 hr 05/11/18 05/11/18 05/11/18 10:00 10:00 10:00 WBC RBC Hgb Hct MCV MCH MCHC RDW Plt Count MPV Neut % (Auto) Lymph % (Auto) [place] % (Auto) Eos % (Auto) Baso % (Auto) Neut # (Auto) Lymph # (Auto) [place] # (Auto) Eos # (Auto) Baso # (Auto) WBC Differential Differential Comment Sodium 140 Potassium 4.1 D Chloride 100 D Carbon Dioxide 26.0 Anion Gap 14 BUN Less than 1 L Creatinine 0.58 Estimated GFR Greater than 89 POC Glucose Random Glucose 120 H Calcium 8.8 Calcium Adj for Albumin Magnesium Cancelled 1.2 L Total Bilirubin 1.1 H AST 152 H ALT 55 H Alkaline Phosphatase 130 H Troponin I Less than 0.02 L Less than 0.02 L Total Protein 6.7 Albumin 3.0 L Lipase 119 Stool C.difficile Ag Stool C.difficile Toxin Stl C.difficile DNA Amp St C. diff Tox Epid 027 Hepatitis A IgM Ab Hep Bs Antigen Hep B Core IgM Ab Hep C IgG Ab 05/11/18 05/11/18 05/11/18 17:45 18:20 18:50 WBC RBC Hgb Hct MCV MCH MCHC RDW Plt Count MPV Neut % (Auto) Lymph % (Auto) [place] % (Auto) Eos % (Auto) Baso % (Auto) Neut # (Auto) Lymph # (Auto) [place] # (Auto) Eos # (Auto) Baso # (Auto) WBC Differential Differential Comment Sodium Potassium Chloride Carbon Dioxide Anion Gap BUN Creatinine Estimated GFR POC Glucose 148 H Random Glucose Calcium Calcium Adj for Albumin Magnesium Total Bilirubin AST ALT Alkaline Phosphatase Troponin I Less than 0.02 L Total Protein Albumin Lipase Stool C.difficile Ag Positive H Stool C.difficile Toxin Negative Stl C.difficile DNA Amp Positive H St C. diff Tox Epid 027 Negative Hepatitis A IgM Ab Hep Bs Antigen Hep B Core IgM Ab Hep C IgG Ab 05/12/18 05/12/18 05/12/18 05:29 05:29 05:29 WBC 8.5 RBC 3.54 L Hgb 13.6 D Hct 38.2 MCV 107.7 H MCH 38.3 H MCHC 35.5 RDW 13.2 Plt Count 140 L D MPV 8.6 Neut % (Auto) 63.1 Lymph % (Auto) 24.3 [place] % (Auto) 10.2 H Eos % (Auto) 2.0 Baso % (Auto) 0.4 Neut # (Auto) 5.4 Lymph # (Auto) 2.1 [place] # (Auto) 0.9 Eos # (Auto) 0.2 Baso # (Auto) 0.0 WBC Differential . Differential Comment Auto diff final Sodium 141 Potassium 3.8 Chloride 103 Carbon Dioxide 28.7 Anion Gap 9 BUN 3 L Creatinine 0.61 Estimated GFR Greater than 89 POC Glucose Random Glucose 95 Calcium 7.4 L* D Calcium Adj for Albumin 8.6 Magnesium Total Bilirubin 1.6 H AST 90 H ALT 38 Alkaline Phosphatase 105 Troponin I Total Protein 5.3 L D Albumin 2.5 L Lipase Stool C.difficile Ag Stool C.difficile Toxin Stl C.difficile DNA Amp St C. diff Tox Epid 027 Hepatitis A IgM Ab Nonreactive Hep Bs Antigen Nonreactive Hep B Core IgM Ab Nonreactive Hep C IgG Ab Nonreactive - Imaging Impressions Abdomen/Pelvis CT 05/11/18 00:00 CONCLUSION: 1. Thickening of the sigmoid colon with adjacent inflammatory change and a small focus of air likely related to colitis. This may start is diverticulitis. 2. Hepatic steatosis. <Kojo Lopez - Last Filed: 05/12/18 10:35> Assessment and Plan - Attending Attestation Patient seen and examined. The patient has C. difficile antigen but not toxin positive. This may not represent C. difficile colitis although she has colitis on CT scan. She does have a limited perforation from diverticulitis. At this point I believe the conservative approach would be to treat her with Cipro, Flagyl and oral vancomycin. Antibiotic therapy should continue for 7-10 days. After that point the patient will need to heal from the limited perforation and then undergo colonoscopy in 6 weeks. The patient will be seen in our office as an outpatient in 4 weeks. I agree with surgical consultation just in case because of the presence of limited diverticular perforation secondary to diverticulitis. We will sign off the case and be available for re-consultation if necessary. <Malik Beck - Last Filed: 05/12/18 10:11> - Plan - Diverticulitis vs colitis- Stools (+) for C-diff Ag and DNA Amp Abdomen/Pelvis CT 05/11/18 Thickening of the sigmoid colon with adjacent inflammatory change and a small focus of air likely related to colitis. This may start is diverticulitis.Hepatic steatosis. Endorses previous hx of diverticulitis, but no recent flare. She never had EGD/colonoscopy before. - C-diff colitis- Will D/c cipro and add Vanco PO - Elevated LFTs- likely secondary to alcohol abuse, She denies previous hx of liver dz. Drinks about [address] daily[address] showed steatosis, hepatitis panel negative - Possible limited perforation- GS consulted - Syncopal episode- likely to dehydration and alcohol intoxication Etoh 279. Cardiology consulted - history of hypertension, PVCs, neuropathy Plan: - Can advance diet if ok with cardiology - Cont. Flagyl - Cont. cipro - Add vanco - After discussion with Dr. Beck, since stools negative for toxins and there is possible diverticulitis with limited perforation, will cont. Cipro - Await rest of stool studies - Monitor stool output - Colonoscopy in 6 weeks - F/u with GI upon discharge - Gi will sign off - Alcohol cessation - IV hydration - Supportive care - pt seen and examined by Dr. Beck and myself and this note is written on his behalf <Kojo Lopez - Last Filed: 05/12/18 10:35>
--- NOTE | 2018-05-12 08:51 | P.PN ---
Subjective Interval history: Follow up for colitis, syncope. The patient is seen ambulating her room without difficulty. She reports feeling much better today. She denies any further abdominal pain or nausea/vomiting. She does report continued watery nonbloody diarrhea overnight and today, however improving. She is hungry and wants to eat. She did tolerate oral intake last night. Denies any fevers or chills. She wants to go home if possible. She has no other medical complaints at this time. Physical Exam Vital signs: Vital Signs 05/11/18 20:00 05/11/18 23:42 05/12/18 04:00 Temperature 97.4 F L 98.3 F 96.9 F L Pulse Rate 67 67 65 Respiratory Rate 20 18 16 Blood Pressure 131/83 118/61 121/66 Pulse Oximetry 96 95 94 L 05/12/18 07:42 Temperature 98.1 F Pulse Rate 62 Respiratory Rate 16 Blood Pressure 141/77 H Pulse Oximetry 94 L Intake & Output 05/11/18 05/12/18 05/12/18 18:59 06:59 18:59 Intake Total 600 / 600 3220 / 3220 Balance 600 / 600 3220 / 3220 Weight 81.6 kg Intake: IV 600 / 600 1400 / 1400 NS Inj 1,000 ML @ 100 mls/hr IV 400 / 400 1000 / 1000 .CONT .Q10H [facility] Rx#:[id number] Cipro 400 MG/200 ML Inj 400 mg 200 / 200 200 / 200 In 200 ml @ 200 mls/hr IV.SIG Q12H [facility] Rx#:[id number] Flagyl 500 MG Inj 100 ML @ 100 200 / 200 mls/hr IV.SIG Q8H [facility] Rx#: [id number] Oral 320 / 320 Other 1500 / 1500 Other: Other Intake Source Saline Solution # Voids 1 4 Date of Last Bowel Movement 05/12/18 # Bowel Movements 2 Narrative: GENERAL: Well-nourished, well-developed pleasant middle-age female patient in [facility]. SKIN: Warm and dry. No rash. Left parietal scalp with 2 cm laceration. HEENT: Normocephalic. Pupils equal and round. Mucous membranes pink and moist. CARDIOVASCULAR: Regular rate and rhythm. No murmur appreciated. RESPIRATORY: No accessory muscle use. Clear to auscultation. Breath sounds equal bilaterally. GASTROINTESTINAL: Abdomen soft, nondistended, nontender today. Normoactive bowel sounds x4. MUSCULOSKELETAL: No obvious deformities. Extremities without clubbing, cyanosis , or edema. NEUROLOGICAL: Awake and alert. No obvious cranial nerve deficits. Motor grossly within normal limits. Moving all extremities spontaneously. Normal speech. PSYCHIATRIC: Appropriate mood and affect; insight and judgment normal. Results - Labs CBC & Chem 7: 05/12/18 05:29 05/12/18 05:29 Laboratory Results - last 24 hr 05/11/18 05/11/18 05/11/18 10:00 10:00 10:00 WBC RBC Hgb Hct MCV MCH MCHC RDW Plt Count MPV Neut % (Auto) Lymph % (Auto) [place] % (Auto) Eos % (Auto) Baso % (Auto) Neut # (Auto) Lymph # (Auto) [place] # (Auto) Eos # (Auto) Baso # (Auto) WBC Differential Differential Comment Sodium 140 Potassium 4.1 D Chloride 100 D Carbon Dioxide 26.0 Anion Gap 14 BUN Less than 1 L Creatinine 0.58 Estimated GFR Greater than 89 POC Glucose Random Glucose 120 H Calcium 8.8 Calcium Adj for Albumin Magnesium Cancelled 1.2 L Total Bilirubin 1.1 H AST 152 H ALT 55 H Alkaline Phosphatase 130 H Troponin I Less than 0.02 L Less than 0.02 L Total Protein 6.7 Albumin 3.0 L Lipase 119 Stool C.difficile Ag Stool C.difficile Toxin Stl C.difficile DNA Amp St C. diff Tox Epid 027 Hepatitis A IgM Ab Hep Bs Antigen Hep B Core IgM Ab Hep C IgG Ab 05/11/18 05/11/18 05/11/18 17:45 18:20 18:50 WBC RBC Hgb Hct MCV MCH MCHC RDW Plt Count MPV Neut % (Auto) Lymph % (Auto) [place] % (Auto) Eos % (Auto) Baso % (Auto) Neut # (Auto) Lymph # (Auto) [place] # (Auto) Eos # (Auto) Baso # (Auto) WBC Differential Differential Comment Sodium Potassium Chloride Carbon Dioxide Anion Gap BUN Creatinine Estimated GFR POC Glucose 148 H Random Glucose Calcium Calcium Adj for Albumin Magnesium Total Bilirubin AST ALT Alkaline Phosphatase Troponin I Less than 0.02 L Total Protein Albumin Lipase Stool C.difficile Ag Positive H Stool C.difficile Toxin Negative Stl C.difficile DNA Amp Positive H St C. diff Tox Epid 027 Negative Hepatitis A IgM Ab Hep Bs Antigen Hep B Core IgM Ab Hep C IgG Ab 05/12/18 05/12/18 05/12/18 05:29 05:29 05:29 WBC 8.5 RBC 3.54 L Hgb 13.6 D Hct 38.2 MCV 107.7 H MCH 38.3 H MCHC 35.5 RDW 13.2 Plt Count 140 L D MPV 8.6 Neut % (Auto) 63.1 Lymph % (Auto) 24.3 [place] % (Auto) 10.2 H Eos % (Auto) 2.0 Baso % (Auto) 0.4 Neut # (Auto) 5.4 Lymph # (Auto) 2.1 [place] # (Auto) 0.9 Eos # (Auto) 0.2 Baso # (Auto) 0.0 WBC Differential . Differential Comment Auto diff final Sodium 141 Potassium 3.8 Chloride 103 Carbon Dioxide 28.7 Anion Gap 9 BUN 3 L Creatinine 0.61 Estimated GFR Greater than 89 POC Glucose Random Glucose 95 Calcium 7.4 L* D Calcium Adj for Albumin 8.6 Magnesium Total Bilirubin 1.6 H AST 90 H ALT 38 Alkaline Phosphatase 105 Troponin I Total Protein 5.3 L D Albumin 2.5 L Lipase Stool C.difficile Ag Stool C.difficile Toxin Stl C.difficile DNA Amp St C. diff Tox Epid 027 Hepatitis A IgM Ab Nonreactive Hep Bs Antigen Nonreactive Hep B Core IgM Ab Nonreactive Hep C IgG Ab Nonreactive - Imaging Impressions Abdomen/Pelvis CT 05/11/18 00:00 CONCLUSION: 1. Thickening of the sigmoid colon with adjacent inflammatory change and a small focus of air likely related to colitis. This may start is diverticulitis. 2. Hepatic steatosis. Head CT 05/11/18 03:03 CONCLUSION: 1. Negative CT Head non contrast. . Chest X-Ray 05/11/18 04:45 CONCLUSION: The lungs are clear. Assessment and Plan - Plan 57-year-old female with history of hypertension, PVCs, neuropathy, alcohol use, tobacco use, presents after syncopal episode. Syncope: Strongly suspect secondary to alcohol intoxication and dehydration. However hx of arrhythmias with frequent PVCs. -EtOH level 279 -Head CT reviewed and unremarkable -Check orthostatics, mildly positive, given IVF hydration and counseled on slow transitions -Ruled out ACS with negative serial cardiac enzymes -EKG reviewed, shows sinus rhythm with 1st degree AV block, incomplete RBBB, with some T wave inversions -Give IV fluid hydration -Monitor on telemetry, Neurochecks -Consult patient's peanut vendor Dr. Navarro, seen by Dr. Hassan, echo ordered -Echocardiogram unremarkable with EF 60-65% -Patient is back to baseline, asymptomatic History of frequent PVCs: Chronic, possibly contributing to above -Monitor on telemetry, no significant findings -continue patient's atenolol, awaiting further recommendations from cardiology on whether to continue patient's flecainide -consulted cardiology, appreciate assistance Acute Colitis/Diverticulitis with suspected C.difficile Infection: patient with abdominal pain, diarrhea -CT abd/pelvis showed thickening of the sigmoid colon with adjacent inflammatory change and a small focus of air likely related to colitis/ diverticulitis. -Started on IV Cipro/Flagyl -C.diff DNA/antigen positive, toxin negative, however given diagnosis of colitis, will plan to treat with po Vanco [id number] -GI consulted, appreciate assistance, request GS evaluation for concern for possible small perforation -Await general surgery consultation -Symptoms improving, no further abdominal pain, and having less diarrhea, tolerating oral intake, GI signed off Dehydration/Hypokalemia: suspect secondary to decreased oral intake and alcohol abuse -give IVF hydration -replaced potassium -monitor BMP/electrolytes and replace as needed Alcohol Abuse: chronic -counselled on cessation -thiamine/folate/MV -monitor for withdrawal DVT Prophylaxis: teds/SCDs Discharge Planning: Awaiting clearance from cardiology and general surgery prior to discharge. The patient was seen and cleared by cardiology and general surgery. Dr. Temple also recommending antibiotics as recommended by GI. Stable for discharge. Discharge patient to home Condition on discharge: Stable Cardiac Diet as tolerated Ad Kavita activity Rx written: Cipro 500mg po bid [id number], Flagyl 500mg q8h tid [id number], Vanco 125mg po qid [id number] Follow-up with primary care physician, gastroenterology, and peanut vendor Dr. Navarro
[2018-05-12] MEDS: Atenolol 25 MG Tablet PO SCH (09:38)
[2018-05-12] MEDS: Folic Acid 1 MG Tablet PO SCH (09:38)
[2018-05-12] MEDS: Gabapentin 300 MG Capsule PO SCH (09:38)
[2018-05-12] MEDS: Senna/Docusate Sodium 8.6/50 MG Tablet PO SCH (09:38)
[2018-05-12] MEDS: Multivitamin/Minerals Therapeutic Tablet PO SCH (09:39)
--- NOTE | 2018-05-12 11:42 | ECHRPT ---
Indication: Syncope and collapse CONCLUSIONS Normal left ventricular size and wall thickness. The left ventricular systolic function is normal wi th an estimated ejection fraction in the range of 60-65%. Left ventricular diastolic function parameters a re normal. BP: / HR: Rhythm: Sinus MEASUREMENTS (Male / Female) Normal Values Technical Quality:Poor 2D ECHO LV Diastolic Diameter PLAX 4.3 cm 4.2 - 5.9 / 3.9 - 5.3 cm LV Systolic Diameter PLAX 2.9 cm IVS Diastolic Thickness 1.0 cm 0.6 - 1.0 / 0.6 - 0.9 cm LVPW Diastolic Thickness 0.9 cm 0.6 - 1.0 / 0.6 - 0.9 cm LV Relative Wall Thickness 0.4 LVOT Diameter 1.9 cm M-MODE Aortic Root Diameter MM 2.8 cm LA Systolic Diameter MM 3.2 cm LA Ao Ratio MM 1.1 AV Cusp Separation MM 1.7 cm DOPPLER AV Peak Velocity 128.0 cm/s AV Peak Gradient 6.6 mmHg LVOT Peak Velocity 98.7 cm/s LVOT Peak Gradient 3.9 mmHg AV Area Cont Eq pk 2.2 cm Mitral E Point Velocity 80.5 cm/s Mitral A Point Velocity 65.6 cm/s Mitral E to A Ratio 1.2 LV E' Lateral Velocity 9.0 cm/s Mitral E to LV E' Lateral Ratio 9.0 LV E' Septal Velocity 6.0 cm/s Mitral E to LV E' Septal Ratio 13.3 PV Peak Velocity 111.0 cm/s PV Peak Gradient 4.9 mmHg FINDINGS LEFT VENTRICLE Normal left ventricular size and wall thickness. The left ventricular systolic function is normal wi th an estimated ejection fraction in the range of 60-65%. Left ventricular diastolic function parameters a re normal. RIGHT VENTRICLE Normal right ventricular size and systolic function. LEFT ATRIUM The left atrial size is normal. RIGHT ATRIUM The right atrial size is normal. ATRIAL SEPTUM Normal atrial septal thickness without atrial level shunting by limited color doppler interrogation. AORTA The aortic root and proximal ascending aorta are normal in size on limited imaging. MITRAL VALVE Structurally normal mitral valve. No mitral valve stenosis or regurgitation. AORTIC VALVE Trileaflet aortic valve. No aortic valve stenosis or regurgitation. TRICUSPID VALVE Structurally normal tricuspid valve. No tricuspid valve stenosis or regurgitation. PULMONARY VALVE The pulmonary valve is not well visualized. VESSELS The inferior vena cava is normal in size. PERICARDIUM No pericardial effusion. Lázaro Villeda MD, FACC, FSCAI (Electronically Signed) Final Date:12 May 2018 11:41
--- NOTE | 2018-05-12 15:56 | P.PNCA ---
Subjective Interval history: Up in room, talking on phone. No further syncope. Denies chest pain, sob, palpitations or complaints. Found to have diverticulitis with limited perforation, being conservatively managed. Medications and Allergies Allergies Allergy/AdvReac Type Severity Reaction Status Date / Time Penicillins Allergy HIVES Verified 05/11/18 08:28 Home Medications Medication Instructions Recorded Confirmed Type atenolol 25 mg PO DAILY 05/11/18 05/11/18 History flecainide 50 mg PO Q12H 05/11/18 05/11/18 History gabapentin 300 mg PO BID 05/11/18 05/11/18 History Active Medications: Active Medications Acetaminophen (Tylenol) 650 mg PO Q4H PRN PRN Reason: Temp > 100.4 Last Admin: 05/12/18 00:46 Dose: 650 mg Al Hydroxide/Mg Hydroxide (Milk Of Magnesia Liq) 30 ml PO Q12H PRN PRN Reason: Mild Constipation Atenolol (Tenormin) 25 mg PO DAILY [facility] Last Admin: 05/12/18 09:38 Dose: 25 mg Bisacodyl (Dulcolax Supp) 10 mg RECTAL DAILY PRN PRN Reason: SEVERE CONSITIPATION Ciprofloxacin HCl (Cipro) 500 mg PO Q12HR [facility] Flumazenil (Romazecon Inj) 0.2 mg IV.PUSH Q1M PRN PRN Reason: OVERSEDATION Folic Acid (Folic Acid) 1 mg PO DAILY [facility] Stop: 05/16/18 08:59 Last Admin: 05/12/18 09:38 Dose: 1 mg Gabapentin (Neurontin) 300 mg PO BID [facility] Last Admin: 05/12/18 09:38 Dose: 300 mg Haloperidol Lactate (Haldol Inj) 1 mg IV.PUSH Q15M PRN PRN Reason: for severe agitation Sodium Chloride (Ns Inj) 1,000 mls @ 100 mls/hr IV.CONT .Q10H [facility] Last Admin: 05/12/18 14:10 Dose: 100 mls/hr Metronidazole/Sodium Chloride (Flagyl 500 Mg Inj) 100 mls @ 100 mls/hr IV.SIG Q8H [facility] Last Infusion: 05/12/18 10:38 Dose: Infused Lactulose (Lactulose Liq) 30 ml PO DAILY PRN PRN Reason: SEVERE CONSITIPATION Lorazepam (Ativan) 1 mg PO Q4H PRN PRN Reason: for CIWA 8-10 Lorazepam (Ativan) 2 mg PO Q2H PRN PRN Reason: for CIWA 11-14 Lorazepam (Ativan Inj) 2 mg IV.PUSH Q2H PRN PRN Reason: for CIWA 11-14 Lorazepam (Ativan Inj) 2 mg IV.PUSH Q1H PRN PRN Reason: for CIWA 15-20 Lorazepam (Ativan Inj) 1 mg IV.PUSH Q4H PRN PRN Reason: for CIWA 8-10 Lorazepam (Ativan Inj) 2 mg IV.PUSH Q15M PRN PRN Reason: for CIWA > 20 Morphine Sulfate (Morphine Inj) 2 mg IV.PUSH Q4H PRN PRN Reason: PAIN SCALE 6 TO 10 Last Admin: 05/12/18 09:57 Dose: 2 mg Multivitamins/Minerals (Theragran-M) 1 tab PO DAILY [facility] Stop: 05/16/18 08:59 Last Admin: 05/12/18 09:39 Dose: 1 tab Ondansetron HCl (Zofran Inj) 4 mg IV.PUSH Q6H PRN PRN Reason: NAUSEA OR VOMITING Last Admin: 05/11/18 18:51 Dose: 4 mg Pantoprazole Sodium (Protonix Inj) 40 mg IV.PUSH Q12H [facility] Last Admin: 05/12/18 05:40 Dose: 40 mg Senna/Docusate Sodium ([place]-Colace) 1 tab PO BID [facility] Last Admin: 05/12/18 09:38 Dose: Not Given Sennosides (Senokot) 17.2 mg PO Q12H PRN PRN Reason: Moderate Constipation Sodium Chloride (Ns Flush) 2 ml IV.FLUSH BID [facility] Last Admin: 05/12/18 09:39 Dose: Not Given Sodium Chloride (Ns Flush) 2 ml IV.FLUSH PRN PRN PRN Reason: FLUSH AFTER USING IV ACCESS Thiamine HCl (Vitamin B1) 100 mg PO DAILY [facility] Last Admin: 05/12/18 09:38 Dose: 100 mg Vancomycin HCl (Vancomycin Po) 250 mg PO QID [facility] Last Admin: 05/12/18 14:11 Dose: 250 mg Physical Exam Vital signs: Vital Signs 05/11/18 20:00 05/11/18 23:42 05/12/18 04:00 Temperature 97.4 F L 98.3 F 96.9 F L Pulse Rate 67 67 65 Respiratory Rate 20 18 16 Blood Pressure 131/83 118/61 121/66 Pulse Oximetry 96 95 94 L 05/12/18 07:42 05/12/18 11:51 Temperature 98.1 F 98.0 F Pulse Rate 62 63 Respiratory Rate 16 16 Blood Pressure 141/77 H 159/88 H Pulse Oximetry 94 L 97 Intake & Output 05/11/18 05/12/18 05/12/18 18:59 06:59 18:59 Intake Total 600 / 600 3220 / 3220 1100 / 1100 Balance 600 / 600 3220 / 3220 1100 / 1100 Weight 81.6 kg Intake: IV 600 / 600 1400 / 1400 1100 / 1100 NS Inj 1,000 ML @ 100 mls/hr IV 400 / 400 1000 / 1000 1000 / 1000 .CONT .Q10H [facility] Rx#:[id number] Cipro 400 MG/200 ML Inj 400 mg 200 / 200 200 / 200 In 200 ml @ 200 mls/hr IV.SIG Q12H [facility] Rx#:[id number] Flagyl 500 MG Inj 100 ML @ 100 200 / 200 100 / 100 mls/hr IV.SIG Q8H [facility] Rx#: [id number] Oral 320 / 320 Other 1500 / 1500 Other: Other Intake Source Saline Solution # Voids 1 4 Date of Last Bowel Movement 05/12/18 # Bowel Movements 2 Narrative: GENERAL: Well-nourished, well-developed pleasant middle-age female patient in [facility]. SKIN: Warm and dry. No rash. Left parietal scalp with 2 cm laceration. HEENT: Normocephalic. Pupils equal and round. Mucous membranes pink and moist. CARDIOVASCULAR: Regular rate and rhythm. No murmur appreciated. RESPIRATORY: No accessory muscle use. Clear to auscultation. Breath sounds equal bilaterally. GASTROINTESTINAL: Abdomen soft, nondistended, nontender today. Normoactive bowel sounds x4. MUSCULOSKELETAL: No obvious deformities. Extremities without clubbing, cyanosis , or edema. NEUROLOGICAL: Awake and alert. No obvious cranial nerve deficits. Motor grossly within normal limits. Moving all extremities spontaneously. Normal speech. PSYCHIATRIC: Appropriate mood and affect; insight and judgment normal. Results 05/12/18 05:29 05/12/18 05:29 Cardiac Enzymes 05/11/18 05/11/18 05/11/18 Range/Units 03:17 10:00 10:00 AST (15-37) U/L Troponin I Less than 0.02 L Less than 0.02 L Less than 0.02 L (0.02-0.05) ng/mL 05/11/18 05/11/18 05/12/18 Range/Units 10:00 17:45 05:29 AST 152 H 90 H (15-37) U/L Troponin I Less than 0.02 L (0.02-0.05) ng/mL CBC 05/11/18 05/12/18 Range/Units 03:17 05:29 WBC 9.2 8.5 (4.0-11.0) th/mm3 RBC 4.27 3.54 L (4.00-5.30) mil/mm3 Hgb 16.3 H 13.6 D (11.6-15.3) gm/dL Hct 45.5 38.2 (35.0-46.0) % Plt Count 202 140 L D (150-450) th/mm3 Neut # (Auto) 4.4 5.4 (1.8-7.7) th/mm3 Lymph # (Auto) 3.6 2.1 (1.0-4.8) th/mm3 [place] # (Auto) 0.9 0.9 (0.0-0.9) th/mm3 Eos # (Auto) 0.2 0.2 (0.0-0.4) th/mm3 Baso # (Auto) 0.1 0.0 (0.0-0.2) th/mm3 Comprehensive Metabolic Panel 05/11/18 05/11/18 05/12/18 Range/Units 03:17 10:00 05:29 Sodium 134 L 140 141 (136-145) meq/L Potassium 3.1 L 4.1 D 3.8 (3.5-5.1) meq/L Chloride 92 L 100 D 103 (98-107) meq/L Carbon Dioxide 30.5 26.0 28.7 (21.0-32.0) meq/L BUN 1 L Less than 1 L 3 L (7-18) mg/dL Creatinine 0.50 0.58 0.61 (0.50-1.00) mg/dL Calcium 8.9 8.8 7.4 L* D (8.5-10.1) mg/dL AST 152 H 90 H (15-37) U/L ALT 55 H 38 (10-53) U/L Alkaline Phosphatase 130 H 105 (45-117) U/L Total Protein 6.7 5.3 L D (6.4-8.2) g/dL Albumin 3.0 L 2.5 L (3.4-5.0) g/dL Intake and Output 05/12/18 05/12/18 05/12/18 06:59 14:59 22:59 Intake Total 3120 / 3120 1100 / 1100 Balance 3120 / 3120 1100 / 1100 Intake: IV 1300 / 1300 1100 / 1100 NS Inj 1,000 ML @ 100 mls/hr IV 1000 / 1000 1000 / 1000 .CONT .Q10H [facility] Rx#:[id number] Cipro 400 MG/200 ML Inj 400 mg 200 / 200 In 200 ml @ 200 mls/hr IV.SIG Q12H [facility] Rx#:[id number] Flagyl 500 MG Inj 100 ML @ 100 100 / 100 100 / 100 mls/hr IV.SIG Q8H [facility] Rx#: [id number] Oral 320 / 320 Other 1500 / 1500 Other: Other Intake Source Saline Solution # Voids 4 Date of Last Bowel Movement 05/12/18 # Bowel Movements 2 Weight 81.6 kg - Imaging and Cardiology Imaging: Impressions Abdomen/Pelvis CT 05/11/18 00:00 CONCLUSION: 1. Thickening of the sigmoid colon with adjacent inflammatory change and a small focus of air likely related to colitis. This may start is diverticulitis. 2. Hepatic steatosis. Head CT 05/11/18 03:03 CONCLUSION: 1. Negative CT Head non contrast. . Chest X-Ray 05/11/18 04:45 CONCLUSION: The lungs are clear. Assessment and Plan - Assessment (1) Syncope Code(s): R55 - Syncope and collapse Status: Acute (2) PVCs (premature ventricular contractions) Code(s): I49.3 - Ventricular premature depolarization Status: Acute (3) Alcohol abuse Code(s): F10.10 - Alcohol abuse, uncomplicated Status: Acute (4) Hypokalemia Code(s): E87.6 - Hypokalemia Status: Acute - Plan Likely neurocardiogenic syncope. Hydration was reviewed. Alcohol cessation was reviewed. No arrhythmias noted on telemetry. Troponins negative. Potassium repleted. Echocardiogram with normal LV function. Continue beta karri, flecainide. Follow up with Dr. Navarro for outpatient telemetry. - Attending Attestation Pt. seen and examined. Normal LV fn. No arrhythmias on tele. Alcohol cessation was reviewed. May need loop recorder. FU with Dr. Navarro
[2018-05-12] MEDS ORDERED: Flecainide 100 MG Tablet PO SCH (16:00)
[2018-05-12 16:15] VITALS: BP 144/86; RESP 20; TEMP 98.3; O2SAT 96
[2018-05-12 18:11] VITALS: PULSE 83
--- NOTE | 2018-05-12 20:30 | MB ---
cc: Cortney Temple MD DATE: 05/12/2018 CONSULTING PHYSICIAN: Cortney Temple MD, Surgery REASON FOR CONSULTATION: Colitis, abdominal pain. 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 The patient had been fine and then suddenly lost consciousness and fell on the floor. Family found her unconscious with a scalp laceration. She was brought to our hospital for workup. She denies having had any nausea and vomiting. Over the last week or two, the patient states she had irregular bowel movements mainly constipated, had been taking stool softeners and could not pass stool. No other issues. PAST MEDICAL HISTORY: Hypertension, neuropathy. SURGICAL HISTORY: . SOCIAL HISTORY: The patient is a 1-2 pack a day smoker and self-admitted drinker, drinks about 2 cups of vodka a day. MEDICATIONS: Can be found in the medical record. PHYSICAL EXAMINATION: GENERAL: Reveals a pleasant 57-year-old lady. HEENT: Normocephalic. Trauma to the head with a parietal scalp laceration, which has been repaired. Pupils are equal and reactive. Extraocular muscles intact. No hemotympanum. No Miguel sign. NECK: Supple. Bilateral carotid pulses. LUNGS: Bilateral breath sounds. HEART: Regular rate and rhythm. ABDOMEN: Soft, active bowel sounds. No rebound, no guarding, no masses. No tenderness at this time. Apparently when the patient came in, she was slightly tender in the left upper and lower quadrant. Pelvis is stable. EXTREMITIES: Within normal limits. BACK: Normal. NEUROLOGIC: The patient is fully intact. Agustin coma scale is 15. Cranial nerves II-XII are normal, and motoric and sensory perception is normal. The patient does have peripheral neuropathy. IMPRESSION AND RECOMMENDATIONS: I reviewed laboratory and diagnostic procedures. This lady presents with left lower quadrant pain, in this case unlikely diverticulitis, most likely a bacterial colitis. Now there are a small group of patients that can have both diverticular disease superimposed on other problems like Clostridium difficile colitis. In this particular situation, today's studies reveal pending cultures, however, toxicology immunology is positive for C. difficile. Generally speaking antigen and toxin tests are indicative of acute situation and positive resolved means the patient has active Clostridium difficile colitis. The patient therefore needs to be treated for the same. PLAN: She will go home on appropriate antibiotics. Should have a colonoscopy in about a month to assess for other pathology. In this particular situation, the most likely scenario is the patient will have a C. difficile colitis that is going to resolve on its own with antibiotics. We will have colonoscopy and depending on the results, she may or may not need anything else. In very few patients, about less than 10%, this could progress to a fulminant colitis, at which point some patients require colectomy in anticipation of impending perforation and toxic megacolon. This is very rare and I do not believe there is any reason to keep the patient in the hospital. The patient can be discharged on oral antibiotics. Thank you very much for the referral. MD NAVDEEP Edwards/everardo , 08:07 PM , 08:15 PM
[2018-05-12] MEDS ORDERED: Ciprofloxacin 500 MG Tablet PO SCH (21:00)
--- NOTE | 2018-05-13 01:01 | ECG ---
Date Performed: 05/11/2018 Time Performed: 02:57:41 PTAGE: 57 years EKG: Sinus rhythm WITH FIRST DEGREE AV BLOCK INDETERMINATE AXIS PATTERN CONSISTENT WITH PULMONARY DISEASE INCOMPLETE R IGHT BUNDLE BRANCH BLOCK ST DEVIATION AND MODERATE T-WAVE ABNORMALITY, CONSIDER ANTERIOR ISCHEMIA ABN ORMAL ECG NO PREVIOUS TRACING DOCTOR: Nelson Velarde Interpretating Date/Time 05/13/2018 01:00:10
--- NOTE | 2018-05-13 01:16 | ECG ---
Date Performed: 05/11/2018 Time Performed: 10:26:40 PTAGE: 57 years EKG: Sinus rhythm WITH FIRST DEGREE AV BLOCK LOW QRS VOLTAGE IN EXTREMITY LEADS ST DEVIATION AND MODERATE T-WAVE ABNOR MALITY, CONSIDER ANTERIOR ISCHEMIA ABNORMAL ECG INTERPRETATION BASED ON A DEFAULT AGE OF 40 YEARS Sin ce the PREVIOUS TRACING , no significant change noted DOCTOR: Nelson Velarde Interpretating Date/Time 05/13/2018 01:15:03
--- NOTE | 2018-05-13 01:29 | ECG ---
Date Performed: 05/11/2018 Time Performed: 16:00:39 PTAGE: 57 years EKG: Sinus rhythm WITH FIRST DEGREE AV BLOCK LOW QRS VOLTAGE IN EXTREMITY LEADS ST DEVIATION AND MODERATE T-WAVE ABNOR MALITY, CONSIDER ANTERIOR ISCHEMIA ABNORMAL ECG PREVIOUS TRACING : 05/11/2018 10.26 Since the previous tracing, no significant change noted DOCTOR: Nelson Velarde Interpretating Date/Time 05/13/2018 01:27:36
== END 2018-05-12 20:52 | disposition home or self-care (01) ==
LOC: NEDA 02:46 → NEPE 02:46 → NEPFCDU 06:07 → NEPHCDU 23:19
PROVIDERS: ADMIT Internal Medicine; ATTEND Internal Medicine
CPT/HCPCS: 70450; 71010; 71045; 74177; 80048; 80053; 80074; 80307; 81001; 82948; 82962; 83690; 83735; 84484; 85025; 87324; 87328; 87329; 87449; 87493; 87506; 90761; 93005; 93306; 96361; 96365; 96366; 96375; 96376; 99285; C9113; G0378; J0744; J2270; J2405; J7030; Q9963; Q9967